=== PATIENT | female | born 1940 | race Caucasian/White ===

== ENCOUNTER 2024-05-05 10:26 | Outpatient (REF) | payer MEDICARE, MEDICAID, SELFPAY ==
[2024-05-05 14:44] LABS: Alanine Aminotransferase 12 U/L (0-31); Albumin Level 4.3 g/dL (3.5-5.0); Alkaline Phosphatase 73 U/L (39-117); Anion Gap 12 (12-20); Aspartate Amino Transferase 18 U/L (5-31); Bilirubin Direct 0.1 mg/dL (0.0-0.5); Bilirubin Total 0.4 mg/dL (0.0-1.0); Blood Urea Nitrogen 21 mg/dL (9-16); Calcium 9.4 mg/dL (8.4-10.2); Carbon Dioxide 27 mmol/L (22-29); Chloride 105 mmol/L (96-108); Cholesterol 211 mg/dL (<200); Estimated Glomerular Filt Rate > 60; Glucose Random 87 mg/dL (60-115); HDL Cholesterol 48 mg/dL (>40); LDL Cholesterol Calculated 136 mg/dL (<100); Potassium 4.7 mmol/L (3.3-5.1); Sodium 139 mmol/L (135-145); Total Protein 7.2 g/dL (6.5-8.0); Triglycerides 138 mg/dL (<150)
== END 2024-05-05 10:27 | disposition home or self-care (01) ==
LOC: HO.CHCLDS 10:26
PROVIDERS: Visit Provider Student in an Organized Health Care Education/Training Program
DX: I10 Essential (primary) hypertension (principal); E78.9 Disorder of lipoprotein metabolism, unspecified
CPT/HCPCS: 36415; 80048; 80061; 80076

== ENCOUNTER 2024-05-25 17:29 | Outpatient (REF) | payer MEDICARE, MEDICAID, SELFPAY ==
[2024-05-25 17:50] LABS: Appearance Urine Clear; Color Urine Yellow; Glucose Urine UA Negative (Negative); Leukocyte Esterase Urine Small (1+) (Negative); Nitrite Urine Negative (Negative); UMIC TRIGGER UACC YES; Urine Blood Small (1+) (Negative); Urine Ketones Negative (Negative); Urine Protein Negative (Neg-Trace)
[2024-05-25 17:52] LABS: Bacteria Urine 4+ (None Seen); Hyaline Casts Urine 0-2 /LPF (0-2); Squamous Epithelial Cell Urine 0-2 /HPF (0-2); UACC Culture Trigger YES
== END 2024-05-25 17:30 | disposition home or self-care (01) ==
LOC: HO.HHCLNP 17:29
PROVIDERS: Visit Provider Nurse Practitioner Primary Care
DX: R82.90 Unspecified abnormal findings in urine (principal); R82.79 Other abnormal findings on microbiological examination of urine
CPT/HCPCS: 81001; 87086; 87088; 87186

== ENCOUNTER 2024-08-02 18:23 | Outpatient (REF) | payer MEDICARE, MEDICAID, SELFPAY | END 2024-08-02 18:24 | disposition home or self-care (01) | LOC: HO.HHCLNP 18:23 | PROVIDERS: Visit Provider Internal Medicine | DX: H92.12 Otorrhea, left ear (principal) | CPT/HCPCS: 87070; 87077; 87205 ==

== ENCOUNTER 2024-10-19 09:40 | Outpatient (REF) | payer MEDICARE, MEDICAID, SELFPAY ==
--- OUTSIDE RECORDS SUMMARY | 2024-10-19 10:12 | XMS_ITS | Referral Summary ---
Author Organization [facility] Address [address] [place] [address] Care Team Providers Care Rehab Manager Name Role Phone Shawnee Haddad Primary Care Provider [phone] Allergies Active Allergy Reactions Criticality Noted Date Comments Aspirin Rash 03/29/2022 Brimonidine Other (see comments) 02/07/2021 Medications acetaminophen (TYLENOL) 325 mg tablet Take 650 mg by mouth every 6 hours as needed. 1 Active albuterol (PROAIR HFA,VENTOLIN HFA) 90 mcg inhaler Inhale 2 puffs by mouth 4 times a day as needed. 2 Active clotrimazole-b etamethasone (LOTRISONE) cream Apply topically to the affected area once a day. 1 Active docusate sodium (COLACE) 100 mg capsule Take 100 mg by mouth 2 times a day as needed. 1 Active estradioL (ESTRACE) 0.01 % (0.1 mg/gram) vaginal cream See Instructions, 1 gram Vaginally at bedtime 2 times per week, # 42 Gm, 4 Refills, Maintenance, 04/17/21 11:56:00 EDT, [facility], Patient sensitive to inactive ingredients of manufacturers drugs - compound makes a significant... 1 Active ibuprofen (MOTRIN) 600 mg tablet Take 600 mg by mouth every 6 hours as needed. 1 Active lisinopriL (PRINIVIL,ZEST RIL) 40 mg tablet TOME DEAN TABLETA TODOS LOS D 1 Active nitrofurantoin monohydrate/ma crocrystals (MACROBID) 100 mg capsule Take 100 mg by mouth every 12 hours. 2 Active oxyCODONE IR (ROXICODONE) 5 mg tablet Take 5 mg by mouth every 6 hours as needed. 1 Active pravastatin (PRAVACHOL) 40 mg tablet Take 40 mg by mouth once a day. 2 Active polyethylene glycol 3350 (MIRALAX) powder Take 17 g by mouth. 1 Active prednisoLONE acetate (PRED FORTE) 1% ophthalmic suspension 2 Active acetaZOLAMIDE (DIAMOX) 250 mg tablet Take 2 tablets (500 mg total) by mouth 2 times a day. 60 tablet 3 2 Active dorzolamide-ti moloL (COSOPT) 22.3-6.8 mg/mL ophthalmic solution Instill 1 drop into both eyes 2 times a day. 10 mL 5 2 Active Active Problems Problem Noted Date Diagnosed Date Lower urinary tract symptoms 03/29/2022 Primary open angle glaucoma of both eyes, severe stage 02/22/2021 Social History Tobacco Use Types Packs/Day Years Used Date Smoking Tobacco: Never Smokeless Tobacco: Never Tobacco Cessation:Counseling Given: Not Answered Comments Unknown Sex and Gender Information Value Date Recorded Sex Assigned at Not on file Legal Sex Female 1:12 PM EDT Gender Identity Not on file Sexual Orientation Not on file Plan of Treatment Not on file Insurance MEDICARE [facility] Care Teams Rehab Manager Relationship Specialty Start Date End Date Catie Shawnee [address] [place] [address] [place] [id number] PCP - General Family Medicine 04/19/22
--- OUTSIDE RECORDS SUMMARY | 2024-10-19 10:12 | XMS_ITS | Clinical Summary ---
Author Organization [facility] [employer] [facility] ity Address [address] [place] [address] Care Team Providers Care Community Reinvestment Act Officer Name Role Phone Unavailable Primary Care Provider Unavailabl e Social History Tobacco Use Types Packs/Day Years Used Date Smoking Tobacco: Never Assessed Sex and Gender Information Value Date Recorded Sex Assigned at Not on file Gender Identity Not on file Sexual Orientation Not on file Plan of Treatment Health Maintenance Due Date Last Done Comments DTaP,Tdap,and Td Vaccines (1 - Tdap) 1959 Zoster Vaccines (1 of 2) 1990 Pneumococcal Vaccine: 65+ Ye ars (1 of 1 - PCV) 2005 RSV Immunization Patients 60 + Years Old (1 - 1-dose 75+ series) 2015 COVID-19 Vaccine ( - 2023-2 5 season) 2024 Influenza Vaccine (#1) 2024 HIB Vaccines Aged Out No longer eligi ble based on patient's age to complete this topic HPV Vaccines Aged Out No longer eligi ble based on patient's age to complete this topic Hepatitis A Vaccines Aged Out No long er eligible based on patient's age to complete this topic Hepatitis B Vaccines Aged Out No long er eligible based on patient's age to complete this topic IPV Vaccines Aged Out No longer eligi ble based on patient's age to complete this topic MMR Vaccines Aged Out No longer eligi ble based on patient's age to complete this topic Meningococcal ACWY Vaccine Aged Out N o longer eligible based on patient's age to complete this topic RSV Immunization Patients Un prachi 20 months Aged Out No longer eligible b ased on patient's age to complete this topic Varicella Vaccines Aged Out No longer eligible based on patient's age to complete this topic
--- OUTSIDE RECORDS SUMMARY | 2024-10-19 10:12 | XMS_ITS | Encounter Summary ---
Author Organization [facility] Address [address] [facility] 7t [place] [address] Care Team Providers Care Cash Applications Clerk Name Role Phone Shawnee Haddad MD Primary Care Provider [phone] Reason for Referral * Consultation (Routine) - Authorized Specialty Diagnoses / Procedures Referred By Faustino gan Referred To Contact Audiology Diagnoses Bilateral hearing loss, unspecified hearing loss type Shawnee Haddad MD [address] [place] [address] Phone: tel: fax: [facility] Audiology [address] [place] [address] Phone: tel: fax: Referral ID Status Reason Start Date Expiration Date Visits Requested Visits Authorized [id number] Authorized Specialty Services Required 09/24/2024 09/24/2025 1 1 Reason for Visit * Reason Comments UTI Encounter Details Date Type Department Care Team ([facility] st Contact Info) Description 09/24/2024 4:00 PM EST Office Visit [facility] [address] [place] [address] Shawnee Haddad MD [address] [place], [place] [phone] Urinary tract infection without hematuria, site unspecified (Primary Dx); Bilateral hearing loss, unspecified hearing loss type Social History Tobacco Use Types Packs/Day Years Used Date Smoking Tobacco: Never Passive Smoke Exposure: Never Smokeless Tobacco: Never Housing Stability Answer Date Recorded What is your housing situation today? I have kyle marinelli 04/08/[address] you li ve. Do you have problems with any of the following? None of the above 04/08/2024 Food Insecurity Answer Date Recorded Within the past 12 months, y ou worried that your food would run out before you got money to buy more: Never True 04/08/2024 Within the past 12 months,th e food you bought just didn't last and you didn't have enough money to get more: Never True Transportation Answer Date Recorded In the past 12 months, has l ack of transportation kept you from medical appts, meetings, work or from getting things needed for daily living? No 04/08/2024 Utilities Answer Date Recorded In the past 12 months, has t he electric, gas, oil or water company threatened to shut off services in your home? No 04/08/2024 Internet Access Answer Date Recorded Internet Access Q1 Yes 05/17/2024 Internet Access Q2 Not on file 05/17/2024 Comments No Sex and Gender Information Value Date Recorded Sex Assigned at Female 07/15/2022 10:29 AM EDT Legal Sex Female 10:29 AM EDT Gender Identity Choose not to disclose 10:29 AM EDT Sexual Orientation Choose not to disclose 2021 10:29 AM EDT documented as of this encounter Last Filed Vital Signs Vital Sign Reading Time Taken Comments Blood Pressure 139/72 09/24/2024 3:51 PM EST Pulse 76 09/24/2024 3:51 PM EST Temperature 36.6 ??C (97.9 ??F) 09/24/2024 3:51 PM ES T Respiratory Rate 16 09/24/2024 3:51 PM EST Oxygen Saturation 95% 09/24/2024 3:51 PM EST Inhaled Oxygen Concentration - - Weight 56.2 kg (124 lb) 09/24/2024 3:51 PM EST Height - - Body Mass Index 25.04 09/20/2024 9:56 AM EST documented in this encounter Progress Notes * Shawnee Haddad MD - 09/24/2024 4:00 PM EST Subjective Patient ID: Heriberto Terrazas is a 84 y.o. adult who presents for UTI. UTI This is a new problem. The current episode started today. The problem is unchanged. Associated symptoms include pain. Review of Systems Constitutional: Negative. Respiratory: Negative. Cardiovascular: Negative. Gastrointestinal: Negative. Genitourinary: Positive for dysuria. Objective Physical Exam Constitutional: Appearance: Normal appearance. Cardiovascular: Rate and Rhythm: Normal rate and regular rhythm. Neurological: Mental Status: Heriberto is alert. Assessment/Plan Diagnoses and all orders for this visit: Urinary tract infection without hematuria, site unspecified Comments: Started On Bactrim DS for 7days Advised plenty of fluids Orders: - POCT urinalysis dipstick manually resulted Bilateral hearing loss, unspecified hearing loss type - Referral to Audiology; Future Other orders - sulfamethoxazole-trimethoprim (Bactrim DS) 800-160 MG tablet; Take 1 tablet by mouth 2 times daily for 7 days. documented in this encounter Plan of Treatment Scheduled Referrals Name Type Priority Associated Diagnoses Orde r Schedule Referral to Audiology Outpatient Referral Routine Bilateral hearing loss, unspecified hearing loss type Expected: 09/24/2024 (Approximate), Expires: 09/24/2025 documented as of this encounter Procedures Procedure Name Priority Date/Time Associated Diagnosis Comments POCT URINALYSIS DIPSTICK Routine 09/24/2024 3:59 PM EST Urinary tract infection without hematuria, site unspecified documented in this encounter Results * (ABNORMAL) POCT urinalysis dipstick manually resulted (09/24/2024 3:59 PM EST) Color, UA Yellow Clarity, UA Clear Glucose, UA Negative Bilirubin, UA Negative Ketones, UA Negative Spec Grav, UA 1.005 Blood, UA Positive(A) Negative, None Detected Comment:Large pH, UA 6.0 Protein, UA Negative Urobilinogen, UA 0.2 Leukocytes, UA Trace Negative, Rare, Trace Nitrite, UA Negative Negative, None Detected Appearance, UA ok Urine 09/24/2024 3:59 PM EST Shawnee Haddad MD POINT OF CARE TEST ENTER/EDIT OR DERABLES Final Result documented in this encounter Visit Diagnoses Diagnosis Urinary tract infection without hematuria, site unspecified- Primary Bilateral hearing loss, unspecified hearing loss type documented in this encounter Care Teams Cash Applications Clerk Relationship Specialty Start Date End Date Shawnee Haddad MD [address] [place] [phone] PCP - General Family Medicine 01/24/16 documented as of this encounter
--- OUTSIDE RECORDS SUMMARY | 2024-10-19 10:12 | XMS_ITS | Encounter Summary ---
Author Organization [employer] Address [address] [facility] 7t [place] [address] Care Team Providers Care Supervisor Sample Name Role Phone Shawnee Haddad MD Primary Care Provider [phone] Reason for Visit * Reason Onset Date Comments Appointment Request 02/17/2023 Encounter Details Date Type Department Care Team (Late st Contact Info) Description 02/17/2023 Telephone [facility] MEDICINE [address] [place] [address] Shawnee Haddad MD [address] [place] [address] Appointment Request Social History Tobacco Use Types Packs/Day Years Used Date Smoking Tobacco: Never Passive Smoke Exposure: Never Smokeless Tobacco: Never Comments Unknown Sex and Gender Information Value Date Recorded Sex Assigned at Female 07/15/2022 10:29 AM EDT Legal Sex Female 10:29 AM EDT Gender Identity Choose not to disclose 10:29 AM EDT Sexual Orientation Choose not to disclose 2021 10:29 AM EDT documented as of this encounter Miscellaneous Notes * Telephone Encounter - Rebecca Menon - 02/17/2023 9:09 AM EDT Tc from [place] with [facility] requesting a Pre-Op appointment. Location: [facility] Procedure: Glaucoma Laser for left eye Date of Procedure: March 24 Lab: no EKG: no documented in this encounter Plan of Treatment Not on file documented as of this encounter Visit Diagnoses Not on filedocumented in this encounter Care Teams Supervisor Sample Relationship Specialty Start Date End Date Shawnee Haddda MD [address] [place] [address] PCP - General Family Medicine 01/24/16 documented as of this encounter
--- OUTSIDE RECORDS SUMMARY | 2024-10-19 10:12 | XMS_ITS | Encounter Summary ---
Author Organization [employer] Address [address] [facility] 7[address] [place] [address] Care Team Providers Care Patient Portal Concierge Name Role Phone Shawnee Haddad MD Primary Care Provider [phone] Reason for Referral * Medications - Closed Specialty Diagnoses / Procedures Referred By Faustino gan Referred To Contact Diagnoses Mild persistent asthma without complication Shawnee Haddad MD [address] [place] [address] Phone: tel: fax: Referral ID Status Reason Start Date Expiration Date Visits Re quested Visits Authorized [id number] Closed 1 1 Reason for Visit * Reason Onset Date Comments New Med Request 09/20/2024 Encounter Details Date Type Department Care Team ([facility] Contact Info) Description 09/20/2024 Refill [facility] MED[facility] [address] [place] [address] Shawnee Haddad MD [address] [place], [place] [phone] Mild persistent asthma without complication (Primary Dx) Social History Tobacco Use Types Packs/Day Years [...] as of this encounter Miscellaneous Notes * Addendum Note - Melida Smith RN - 09/21/2024 3:38 PM ESTAddended by: MELIDA SMITH on: 09/21/2024 03:38 PM Modules accepted: Orders * Telephone Encounter - Jory Mathew RN - 09/20/2024 3:49 PM EST TC to [facility]-no record of albuterol solution prescription on file for this patient. TC to patient via #[email or web address] answer, voicemail unavailable * Telephone Encounter - Gunner Sanchez - 09/20/2024 2:52 PM EST Tc from pt requesting a new Rx for albuterol solution for her nebulizer as is not currently in her med list. documented in this encounter Plan of Treatment Not on file documented as of this encounter Visit Diagnoses Diagnosis Mild persistent asthma without complication- Primary documented in this encounter Care Teams Patient Portal Concierge Relationship Specialty Start Date End Date Shawnee Haddad MD [address] [place] [phone] PCP - General Family Medicine 01/24/16 documented as of this encounter
--- OUTSIDE RECORDS SUMMARY | 2024-10-19 10:12 | XMS_ITS | Encounter Summary ---
Author Organization [employer] Address [address] [facility] [address] [place] [address] Care Team Providers Care Information Security Systems Instructor Name Role Phone Shawnee Haddad MD Primary Care Provider [phone] Encounter Details Date Type Department Care Team (Latest Contact Info) Description 09/20/2024 Travel Social History Tobacco Use Types Packs/Day Years [...] AM EDT documented as of this encounter Plan of Treatment Not on file documented as of this encounter Visit Diagnoses Not on filedocumented in this encounter Care Teams Information Security Systems Instructor Relationship Specialty Start Date End Date Shawnee Haddad MD [address] [place] [address] PCP - General Family Medicine 01/24/16 documented as of this encounter
--- OUTSIDE RECORDS SUMMARY | 2024-10-19 10:12 | XMS_ITS | Encounter Summary ---
Author Organization [employer] Address [address] [facility] [address] [place] [address] Care Team Providers Care Lawn Mower Operator Name Role Phone Shawnee Haddad MD Primary Care Provider [phone] Reason for Visit * Reason Comments ear infection fu Encounter Details Date Type Department Care Team ([facility] Contact Info) Description 09/20/2024 10:00 AM EST Office Visit [facility] [address] [place] [address] Shawnee Haddad MD [address] [place] [address] Discharge of left ear present (Primary Dx); Primary hypertension; Mild persistent asthma with (acute) exacerbation Social History Tobacco Use Types Packs/Day Years Used Date Smoking Tobacco: Never Passive Smoke Exposure: Never Smokeless Tobacco: Never Tobacco Cessation:Counseling Given: Not Answered Housing Stability Answer Date Recorded What is [...] the past 12 months, has t he [employer], gas, oil or water company threatened to [...] Sign Reading Time Taken Comments Blood Pressure 134/84 09/20/2024 9:56 AM EST Pulse 84 09/20/2024 9:56 AM EST Temperature 36.6 ??C (97.9 ??F) 09/20/2024 9:56 AM ES T Respiratory Rate 20 09/20/2024 9:56 AM EST Oxygen Saturation - - Inhaled Oxygen Concentration - - Weight 56.2 kg (124 lb) 09/20/2024 9:56 AM EST Height 149.9 cm (4' 11 ) 09/20/2024 9:56 AM EST Body Mass Index 25.04 09/20/2024 9:56 AM EST documented in this encounter Progress Notes * Shawnee Haddad MD - 09/20/2024 10:00 AM EST Subjective Patient ID: Heriberto Terrazas is a 84 y.o. adult who presents for ear infection fu. Is here for follow up ear pain Symptoms resolved and she is feeling better Review of Systems Constitutional: Negative. Respiratory: Negative. Negative for shortness of breath. Cardiovascular: Negative for chest pain and palpitations. Gastrointestinal: Negative. Genitourinary: Negative. Musculoskeletal: Negative for neck pain. Neurological: Negative for headaches. Objective Physical Exam Constitutional: Appearance: Normal appearance. Cardiovascular: Rate and Rhythm: Normal rate and regular rhythm. Pulmonary: Effort: Pulmonary effort is normal. Breath sounds: Normal breath sounds. Neurological: General: No focal deficit present. Mental Status: Heriberto is alert. Psychiatric: Mood and Affect: Mood normal. Behavior: Behavior normal. Assessment/Plan Diagnoses and all orders for this visit: Discharge of left ear present Comments: resolved Advised to avoid water in the ears Primary hypertension Comments: Stable No changes in meds Maintain a low-sodium diet (less than 2 grams per day). Maintain a regular cardiovascular exercise program. Advised to maintain a low-fat, low-cholesterol diet. Counseled regarding importance of weight loss. Counseled re: potential co-morbidities including cardiovascular disease. Orders: - lisinopril 40 MG tablet; TAKE 1 TABLET BY MOUTH EVERY DAY Mild persistent asthma with (acute) exacerbation Comments: Stable Orders: - Flovent HFA 220 MCG/ACT inhaler; Inhale 2 puffs in the morning and at bedtime. Rinse mouth with water after use to reduce aftertaste and incidence of candidiasis. Do not swallow. - albuterol 108 (90 Base) MCG/ACT inhaler; Inhale 2 puffs Every 4-6 hours as needed for wheezing orshortness of breath. Other orders - pravastatin (Pravachol) 40 MG tablet; TAKE 1 TABLET BY MOUTH EVERY DAY documented in this encounter Plan of Treatment Not on file documented as of this encounter Visit Diagnoses Diagnosis Discharge of left ear present- Primary Primary hypertension Unspecified essential hypertension Mild persistent asthma with (acute) exacerbation documented in this encounter Care Teams Lawn Mower Operator Relationship Specialty Start Date End Date Shawnee Haddad MD [address] [place] [phone] PCP - General Family Medicine 01/24/16 documented as of this encounter
--- OUTSIDE RECORDS SUMMARY | 2024-10-19 10:12 | XMS_ITS | Encounter Summary ---
Author Organization [employer] Address [address] [facility] [place] [address] Care Team Providers Care Lay Brother Name Role Phone Shawnee Haddad MD Primary Care Provider [phone] Reason for Visit * Reason Comments Med Change Request Encounter Details Date Type Department Care Team ([facility] Contact Info) Description 09/23/2024 Refill [facility] [address] [place] [address] Shawnee Haddad MD [address] [place] [address] Mild persistent asthma with (acute) exacerbation Social [...] encounter Visit Diagnoses Diagnosis Mild persistent asthma with (acute) exacerbation documented in this encounter Care Teams Lay Brother Relationship Specialty Start Date End Date Shawnee Haddad MD [address] [place] [address] PCP - General Family Medicine 01/24/16 documented as of this encounter
--- OUTSIDE RECORDS SUMMARY | 2024-10-19 10:12 | XMS_ITS | Clinical Summary ---
Author Organization [employer] Address [address] [place] [address] 7[address] [place] [address] Care Team Providers Care Leather Lacer Name Role Phone Shawnee Haddad MD Primary Care Provider [phone] Allergies Active Allergy Reactions Criticality Noted Date Comments Aspirin Hives,Rash High 01/24/2016 Brimonidine Rash Low 02/07/2021 Medications timolol (Timoptic) 0.5 % ophthalmic solution DROPS PONGA DEAN GOTA EN LOS DOS OJOS DOS VECES [place] ROCK 022 Active prednisoLONE acetate (Pred-Forte) 1 % ophthalmic suspension PLACE 1 DROP INTO SURGICAL EYE(S) FOUR TIMES DAILY STARTING ON THE DAY OF SURGERY 023 Active methazolAMIDE (Neptazane) 50 MG tablet TOME DEAN TABLETA DOS VECES AL D A 022 Active ketorolac (Acular) 0.5 % ophthalmic solution PLACE 1 DROP INTO SURGICAL EYE(S) FOUR TIMES DAILY DIRECTED 023 Active dorzolamide-ping olol (Cosopt) 22.3-6.8 MG/ML ophthalmic solution PONGA DEAN GOTA EN LOS DOS OJOS DOS VECES AL D A 023 Active docusate sodium (Colace) 100 MG capsule TOME 1 CAPSULA POR VIA ORAL DOS VECES [place] ROCK NEEDED FOR CONSTIPATION NOT COVERED 022 Active naproxen (Naprosyn) 500 MG tablet TOME DEAN TABLETA TODOS LOS D 023 Active Spacer/Aero-Hol ding Chambers deviceIndicatio ns:Mild persistent asthma with (acute) exacerbation 1 each Every 4-6 hours as needed (SOB, wheezing). 1 each 1 023 Active Blood Pressure Monitor kitIndications: Primary hypertension 1 each 2 times daily. 1 kit 023 Active fluticasone (Flonase Allergy Relief) 50 MCG/ACT nasal spray Administer 1 spray into each nostril 2 times daily. Shake gently. Before first use, prime pump. After use, clean tip and replace cap. 16 g 12 024 2024 Active NIFEdipine XL (Procardia XL) 60 MG 24 hr tabletIndicatio ns:Primary hypertension TAKE 1 TABLET BY MOUTH EVERY DAY 90 tablet 3 024 Active clotrimazole (Lotrimin) 1 % external solutionIndicat ions:Otomycosis Apply topically 2 times a day x 10 days. 10 mL 024 Active pravastatin (Pravachol) 40 MG tablet TAKE 1 TABLET BY MOUTH EVERY DAY 90 tablet 3 025 Active lisinopril 40 MG tabletIndicatio ns:Primary hypertension TAKE 1 TABLET BY MOUTH EVERY DAY 90 tablet 3 025 Active albuterol 108 (90 Base) MCG/ACT inhalerIndicati ons:Mild persistent asthma with (acute) exacerbation Inhale 2 puffs Every 4-6 hours as needed for wheezing or shortness of breath. 18 g 1 025 Active albuterol (2.5 MG/3ML) 0.083% nebulizer solutionIndicat ions:Mild persistent asthma without complication Take 3 mL (2.5 mg) by nebulization every 4 (four) hours if needed for wheezing or shortness of breath. 75 mL 3 025 Active fluticasone (Flovent) 220 MCG/ACT inhalerIndicati ons:Mild persistent asthma with (acute) exacerbation INHALE 2 PUFFS IN THE MORNING AND AT BEDTIME. RINSE MOUTH WITH WATER AFTER USE TO REDUCE AFTERTASTE AND INCIDENCE OF CANDIDIASIS. DO NOT SWALLOW. 18 g 3 025 Active Flovent HFA 220 MCG/ACT inhalerIndicati ons:Mild persistent asthma with (acute) exacerbation Inhale 2 puffs in the morning and at bedtime. Rinse mouth with water after use to reduce aftertaste and incidence of candidiasis. Do not swallow. 12 g 3 023 2024 Discontinued(R eorder (will not trigger notification to Pharmacy)) albuterol 108 (90 Base) MCG/ACT inhalerIndicati ons:Mild persistent asthma with (acute) exacerbation Inhale 2 puffs Every 4-6 hours as needed for wheezing or shortness of breath. 18 g 1 023 2024 Discontinued(R eorder (will not trigger notification to Pharmacy)) pravastatin (Pravachol) 40 MG tablet TAKE 1 TABLET BY MOUTH EVERY DAY 90 tablet 3 024 2024 Discontinued(R eorder (will not trigger notification to Pharmacy)) lisinopril 40 MG tabletIndicatio ns:Primary hypertension TAKE 1 TABLET BY MOUTH EVERY DAY 90 tablet 3 024 2024 Discontinued(R eorder (will not trigger notification to Pharmacy)) Flovent HFA 220 MCG/ACT inhalerIndicati ons:Mild persistent asthma with (acute) exacerbation Inhale 2 puffs in the morning and at bedtime. Rinse mouth with water after use to reduce aftertaste and incidence of candidiasis. Do not swallow. 12 g 3 025 2024 Discontinued albuterol (2.5 MG/3ML) 0.083% nebulizer solution Take 2.5 mg by nebulization every 4 (four) hours if needed for wheezing or shortness of breath. 2024 Discontinued(R eorder (will not trigger notification to Pharmacy)) sulfamethoxazol e-trimethoprim (Bactrim DS) 800-160 MG tablet Take 1 tablet by mouth 2 times daily for 7 days. 14 tablet 025 2024 Active Problems Problem Noted Date Diagnosed Date Discharge of left ear present 08/02/2024 Mild persistent asthma without complication 10/16 Lipid disorder 10/30/2022 Primary open angle glaucoma of both eyes, severe stage 02/22/2021 Encounters Date Type Department Care Team Description 09/24/2024 4:00 PM EST Office Visit [facility] [address] [phone] Shawnee Haddad MD Urinary tract infection without hematuria, site unspecified (Primary Dx); Bilateral hearing loss, unspecified hearing loss type 09/23/2024 Refill [facility] [address] [place] [address] Shawnee Haddad MD Mild persistent asthma with (acute) exacerbation 09/20/2024 10:00 AM EST Office Visit [facility] [address] [place] [address] Shawnee Haddad MD Discharge of left ear present (Primary Dx); Primary hypertension; Mild persistent asthma with (acute) exacerbation 09/20/2024 Refill [facility] [address] [place] [phone] Shawnee Haddad MD Mild persistent asthma without complication (Primary Dx) 09/20/2024 Travel 08/19/2024 11:30 AM EST Office Visit [facility] [address] [place] [address] Shawnee Haddad MD Fluid level behind tympanic membrane of both ears (Primary Dx) 08/19/2024 Travel 08/04/2024 Telephone [facility] [address] [place] [address] Gurdeep Bennett MD 08/04/2024 Orders Only [facility] [address] [place] [address] Gurdeep Bennett MD Otomycosis (Primary Dx) 08/02/2024 1:40 PM EST Office Visit [facility] [address] [place] [phone] Gurdeep Bennett MD Primary hypertension (Primary Dx); Discharge of left ear present; Other hearing loss of left ear with unrestricted hearing of right ear 07/29/2024 Telephone [facility] [address] [place] [phone] Shawnee Haddad MD Med Refill from Last 3 Months Immunizations Name Administration Dates Next Due Influenza High-dose Quadriva lent Preservative Free 08/21/2023,07/02/2022,07/16/2021,06/07 Influenza injectable quadriv alent IIV4 with preservative 07/26/2019,06/25/2018,06/10/2017,06/27 Influenza, High Dose Seasona l, Preservative Free 07/01/2024 Pneumococcal Conjugate PCV 13 07/30/2016 Pneumococcal Polysaccharide PPSV23 06/25/2018 TD (adult), 2 Lf tetanus tox oid, preservative free, adsorbed 05/12/2017 Tdap 06/25/2018 Zoster, Recombinant 01/30/2021,11/17/2019 Social History Tobacco Use Types Packs/Day Years [...] not to disclose 2021 10:29 AM EDT Last Filed Vital Signs Vital Sign Reading Time Taken Comments Blood Pressure 139/72 09/24/2024 3:51 PM EST Pulse 76 09/24/2024 3:51 PM EST Temperature 36.6 ??C (97.9 ??F) 09/24/2024 3:51 PM ES T Respiratory Rate 16 09/24/2024 3:51 PM EST Oxygen Saturation 95% 09/24/2024 3:51 PM EST Inhaled Oxygen Concentration - - Weight 56.2 kg (124 lb) 09/24/2024 3:51 PM EST Height 149.9 cm (4' 11 ) 09/20/2024 9:56 AM EST Body Mass Index 25.04 09/20/2024 9:56 AM EST Plan of Treatment Health Maintenance Due Date Last Done Comments Depression Screening 1940 Alcohol/Substance Use Screening 1952 RSV Patients and Patients Aged 60 years or older (1 - 1-dose 75+ series) 2015 COVID-19 Vaccine ( season) 2024 11/07/2021, 12/20/2020, 11/22/2020 SDOH Screening 04/08/2025 04/08/2024 Tobacco Screening 09/20/2025 09/20/2024 DTaP/Tdap/Td Vaccines (2 - Td or Tdap) 06/25/2028 06/25/2018, 05/12/2017 Lipid Panel 05/05/2029 05/05/2024, 12/0 09/2021, 07/25/2022, Additional history exists Pneumococcal Vaccine: 50+ Years Completed 06/25/2018, 07/30/2016 Zoster Vaccines Completed 01/30/2021, 11/17/2019 Influenza Vaccine Completed 07/01/2024, , 07/02/2022, Additional history exists HIB Vaccines Aged Out No longer eligi [...] patient's age to complete this topic Meningococcal Vaccine Aged Out No elaine meron eligible based on patient's age to complete this topic RSV under 20 months Aged Out No longe r eligible based on patient's age to complete this topic Rotavirus Vaccines Aged Out No longer eligible based on patient's age to complete this topic Procedures Procedure Name Priority Date/Time Associated Diagnosis Comments POCT URINALYSIS DIPSTICK Routine 09/24/2024 3:59 PM EST Urinary tract infection without hematuria, site unspecified GRAM STAIN Routine 08/02/2024 12:00 AM EST LIPID PANEL, STANDARD Routine 05/05/2024 10:32 AM EDT Lipid disorder Primary hypertension from Last 3 Months or Most Recently Relevant to Health Maintenance Results * (ABNORMAL) POCT urinalysis dipstick manually [...] CARE TEST ENTER/EDIT OR DERABLES Final Result * Gram stain (08/02/2024 12:00 AM EST) 08/02/2024 08/02/2024 Comment:Ear Left Narrative [facility] - 08/06/2024 10:45 AM EST DISCHARGE OF LEFT EAR PRESENT Gram stain results: No polys 1+ epithelial cells 4+ yeast DISCHARGE OF LEFT EAR PRESENT Elizabeth parapsilosis Quant Org ID [id number] Specimen Source: Ear Left us Gurdeep Bennett MD LAB MICROBIOLOGY - GENERAL ORDERABLES Final Result [facility] [address] [place] [phone] * (ABNORMAL) Lipid Panel, Standard (05/05/2024 10:32 AM EDT) Triglycerides 138 <150 mg/dL [facility] Comment:Desirable Triglyceri de: less than 150 mg/dLBorderline High Triglyceride 150-199 mg/dLHigh Triglyceride: 200-499 mg/dLVery High Triglyceride: greater than or equal to 5OO mg/dL Cholesterol 211(H) <200 mg/dL [facility] Comment:Desirable Cholestero l: less than 200 mg/dLBorderline High Cholesterol: 200-239 mg/dLHigh Cholesterol: greater than 239 mg/dL LDL Cholesterol Calculated 136(H) <100 mg/dL [facility] Comment:Desirable LDL: less than 100 mg/dLNear Optimal/Above Optimal LDL: 110- 129 mg/dLBorderline High LDL: 130-159 mg/dLHigh LDL: 160-189 mg/dLVery High LDL: greater than or equal to 190 mg/dL HDL Cholesterol 48 >40 mg/dL [facility] Comment:Desirable HDL: great er than 40 mg/dL Note: This HDL assay may give artificially low results in patients with liver disease. Blood Venous blood specimen / Unknown 05/05/2024 10:32 AM EDT 05/05/2024 2:09 PM EDT us Shawnee Haddad MD LAB BLOOD ORDERABLES Final Resul t [facility] [address] [place] [phone] from Last 3 Months or Most Recently Relevant to Health Maintenance Insurance MEDICARE [facility] STANDARD Care Teams Leather Lacer Relationship Specialty Start Date End Date Shawnee Haddad MD [address] [place] [phone] PCP - General Family Medicine 01/24/16
--- OUTSIDE RECORDS SUMMARY | 2024-10-19 10:13 | XMS_ITS | Clinical Summary ---
Author Organization [facility] Address [address] [place] [address] Care Team Providers Care Hazard Mitigation Officer Name Role Phone Shawnee Haddad Primary Care Provider [phone] Allergies Active Allergy Reactions Criticality Noted Date [...] Refills, Maintenance, 04/17/21 11:56:00 EDT, [facility], Patient sensitive to inactive ingredients of manufacturers [...] glaucoma of both eyes, severe stage 02/22/2021 Family History Medical History Relation Name Comments Glaucoma Sister Relation Name Status Comments Sister Social History Tobacco Use Types Packs/Day Years Used Date Smoking Tobacco: Never Smokeless Tobacco: Never Tobacco Cessation:Counseling Given: Not Answered Comments Unknown Sex and Gender Information Value Date Recorded Sex Assigned at Not on file Legal Sex Female 1:12 PM EDT Gender Identity Not on file Sexual Orientation Not on file Plan of Treatment Health Maintenance Due Date Last Done Comments Osteoporosis Screening 1990 RSV Vaccine (60+ years old and patients) (1 - 1-dose 75+ series) 2015 COVID-19 Vaccine ( season) 2024 11/07/2021, 12/20/2020, 11/22/2020 Influenza Vaccine (#1) 2024 2, 07/16/2021, 06/07/2020, Additional history exists Alcohol/Substance Use Screening 09/15/2024 Depression Screening and Follow-Up 09/15/2024 Health Care Proxy Review 09/15/2024 Social Drivers of Health Annual Screening 09/15/2024 DTaP,Tdap,and Td Vaccines (2 - Td or Tdap) 06/25/2028 06/25/2018, 05/12/2017 Pneumococcal Vaccine: 65+ Years Completed 06/25/2018, 07/30/2016, 03/19/2015 Zoster Vaccines Completed 01/30/2021, 11/17/2019 Hepatitis B Vaccines Aged Out No long er eligible based on patient's age to complete this topic Insurance MEDICARE [facility] Care Teams Hazard Mitigation Officer Relationship Specialty Start Date End Date Shawnee Haddad [address] [place] [phone] PCP - General Family Medicine 04/19/22
--- OUTSIDE RECORDS SUMMARY | 2024-10-19 10:13 | XMS_ITS | Encounter Summary ---
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
--- NOTE | 2024-10-19 12:27 | MHC.AU.HA1 ---
Hearing Aid Evaluation Date of Visit: 10/19/24 Phone Technician Used: Declined by Patient, daughter interpreted Historical Information: Description of Hearing: Moderate to moderately severe sensorineural hearing loss, bilateral. Current personal amplification information, if applicable: None. Summary: Amplification recommended to facilitate improved communication. Recommended RITE with custom mold. Heriberto selected rechargeable. Impressions taken without incidence Au. Hearing Aid Prescription: Based on the individual?s shared listening needs, communication environments, dexterity, desire for connectivity, and personal preferences, the following prescription for amplification has been made: Right ear: Make, Model, Color: Oticon Intent 2 R silver Battery Size: Rechargeable Music Historian/Slim Tube: 2/ 85 Type of Earmold/Dome/CShell/SlimTip: acrylic micromold half skeleton Left ear: Make, Model, Color: Oticon Intent 2 R silver Battery Size: Rechargeable Music Historian/Slim Tube: 2/85 Type of Earmold/Dome/CShell/SlimTip: acrylic micromold half skeleton Plan of Care: Patient wishes to purchase hearing aids as prescribed Action Taken/Action Needed: Earmold Impressions Taken Medical Clearance to be requested from PCP/ENT Hearing Instrument Fitting to be scheduled when materials arrive Primary Diagnosis: H90.3 Bilateral Sensorineural Hearing Loss Signature: Provider: Phillip Ybarra, [facility]
== END 2024-10-19 09:41 | disposition home or self-care (01) ==
LOC: HO.SH 09:40
PROVIDERS: Visit Provider Student in an Organized Health Care Education/Training Program
DX: Z01.118 Encounter for examination of ears and hearing with other abnormal findings (principal); Z46.1 Encounter for fitting and adjustment of hearing aid; H90.3 Sensorineural hearing loss, bilateral
CPT/HCPCS: 92557; 92567; 92591; V5275

== ENCOUNTER 2024-12-07 11:02 | Outpatient (REF) | payer MEDICARE, MEDICAID, SELFPAY | END 2024-12-07 11:03 | disposition home or self-care (01) | LOC: HO.LNP 11:02 | PROVIDERS: Visit Provider Emergency Medicine | DX: R39.9 Unspecified symptoms and signs involving the genitourinary system (principal) | CPT/HCPCS: 87086; 87088; 87186 ==

== ENCOUNTER 2024-12-13 14:53 | Outpatient (REF) | payer MEDICARE, MEDICAID, SELFPAY ==
--- NOTE | 2024-12-13 16:11 | MHC.AU.HA2 ---
Hearing Instrument Fitting- Adult- Binaural Date of Visit: 12/13/24 Gut Cleaner Used: Daughter. Hearing Instruments Dispensed: Right Ear: Make, Model, Color, Serial Number: Oticon Intent 2 R silver [id number] Banquet Supervisor Repair Warranty: 12/02/2027 Banquet Supervisor Loss and Damage Warranty: 12/02/2027 [facility] Service Plan: 12/13/25 Battery Size: Rechargeable Financial Administrative Assistant/Slim Tube: 2/ 85 Earmold/Dome/CShell/SlimTip: acrylic micromold half skeleton [id number] Type of Wax Guard: Oticon Prowax Left Ear: Make, Model, Color, Serial Number: Oticon Intent 2 R silver [id number] Banquet Supervisor Repair Warranty: 12/02/2027 Banquet Supervisor Loss and Damage Warranty: 12/02/2027 [facility] Service Plan: 12/13/25 Battery Size: Rechargeable Financial Administrative Assistant/Slim Tube: 285 Earmold/Dome/CShell/SlimTip: acrylic micromold half skeleton [id number] [facility] 02/14/2025 Type of Wax Guard: Oticon Prowax Summary of Fitting: Fit with and oriented to binaural Oticon Intent 2 R HAs with custom molds. Verified to L adult 5 targets. Set to adaptation 1 with gradual increase. Counseled on adjustment to amplification. Reviewed maintenance, precautions, charging. Practiced insertion and removal. Daughter will be managing maintenance and hearing aid use due to Heriberto's increasingly low vision. VC disabled. Not paired with a phone. Recommendations: Recommendations: Hearing instrument care and maintenance were discussed and practiced. A hearing instrument follow-up was scheduled. Diagnosis Code(s): Primary Diagnosis: H90.3 Bilateral Sensorineural Hearing Loss Signature: Provider: Phillip Ybarra, CCC-A
--- OUTSIDE RECORDS SUMMARY | 2024-12-13 16:52 | XMS_ITS | Clinical Summary ---
Author Organization [employer] Address [address] [place] [address] 7t [place] [address] Care Team Providers Care Shoes Salesperson Name Role Phone Shawnee Haddad MD Primary Care Provider [phone] Allergies Active Allergy Reactions Criticality Noted Date Comments Aspirin Hives,Rash High 01/24/2016 Brimonidine Rash Low 02/07/2021 Medications timolol (Timoptic) 0.5 % ophthalmic solution DROPS PONGA DEAN GOTA EN LOS DOS OJOS DOS VECES [place] 02/29/20 22 Active prednisoLONE acetate (Pred-Forte) 1 % ophthalmic suspension PLACE 1 DROP INTO SURGICAL EYE(S) FOUR TIMES DAILY STARTING ON THE DAY OF SURGERY 10/15/19 23 Active methazolAMIDE (Neptazane) 50 MG tablet TOME DEAN TABLETA DOS VECES AL D A 07/12/20 22 Active ketorolac (Acular) 0.5 % ophthalmic solution PLACE 1 DROP INTO SURGICAL EYE(S) FOUR TIMES DAILY DIRECTED 10/17/19 23 Active dorzolamide-harrison lol (Cosopt) 22.3-6.8 MG/ML ophthalmic solution PONGA DEAN GOTA EN LOS DOS OJOS DOS VECES AL D A 09/24/19 23 Active docusate sodium (Colace) 100 MG capsule TOME 1 CAPSULA POR VIA ORAL DOS VECES [place] NEEDED FOR CONSTIPATION NOT COVERED 06/14/20 22 Active naproxen (Naprosyn) 500 MG tablet TOME DEAN TABLETA TODOS LOS D 02/24/20 23 Active Spacer/Aero-Hold ing Chambers deviceIndication s:Mild persistent asthma with (acute) exacerbation 1 each Every 4-6 hours as needed (SOB, wheezing). 1 each 1 05/07/20 23 Active Blood Pressure Monitor kitIndications:P rimary hypertension 1 each 2 times daily. 1 kit 05/07/20 23 Active fluticasone (Flonase Allergy Relief) 50 MCG/ACT nasal spray Administer 1 spray into each nostril 2 times daily. Shake gently. Before first use, prime pump. After use, clean tip and replace cap. 16 g 12 01/09/20 24 025 Active NIFEdipine XL (Procardia XL) 60 MG 24 hr tabletIndication s:Primary hypertension TAKE 1 TABLET BY MOUTH EVERY DAY 90 tablet 3 08/02/20 24 Active clotrimazole (Lotrimin) 1 % external solutionIndicati ons:Otomycosis Apply topically 2 times a day x 10 days. 10 mL 08/04/20 24 Active pravastatin (Pravachol) 40 MG tablet TAKE 1 TABLET BY MOUTH EVERY DAY 90 tablet 3 09/20/19 25 Active lisinopril 40 MG tabletIndication s:Primary hypertension TAKE 1 TABLET BY MOUTH EVERY DAY 90 tablet 3 09/20/19 25 Active albuterol 108 (90 Base) MCG/ACT inhalerIndicatio ns:Mild persistent asthma with (acute) exacerbation Inhale 2 puffs Every 4-6 hours as needed for wheezing or shortness of breath. 18 g 1 09/20/19 25 Active albuterol (2.5 MG/3ML) 0.083% nebulizer solutionIndicati ons:Mild persistent asthma without complication Take 3 mL (2.5 mg) by nebulization every 4 (four) hours if needed for wheezing or shortness of breath. 75 mL 3 09/22/19 25 Active fluticasone (Flovent) 220 MCG/ACT inhalerIndicatio ns:Mild persistent asthma with (acute) exacerbation INHALE 2 PUFFS IN THE MORNING AND AT BEDTIME. RINSE MOUTH WITH WATER AFTER USE TO REDUCE AFTERTASTE AND INCIDENCE OF CANDIDIASIS. DO NOT SWALLOW. 18 g 3 10/05/19 25 Active nitrofurantoin, macrocrystal-mon ohydrate, (Macrobid) 100 MG capsule Take 1 capsule (100 mg) by mouth 2 times daily for 5 days. 10 capsule 12/08/19 25 025 Active Problems Problem Noted Date Diagnosed Date Discharge of left ear present 08/02/2024 Mild persistent asthma without complication 10/16 Lipid disorder 10/30/2022 Primary open angle glaucoma of both eyes, severe stage 02/22/2021 Encounters Date Type Department Care Team Description 12/07/2024 10:00 AM EDT Office Visit [facility] [address] [place] [address] Jonny Trammell MD UTI symptoms 11/30/2024 Telephone [facility] [address] [place] [address] Shawnee Haddad MD Pre-op Exam 09/24/2024 4:00 PM EST Office Visit [facility] [address] [address] Shawnee Haddad MD Urinary tract infection without hematuria, site unspecified (Primary Dx); Bilateral hearing loss, unspecified hearing loss type 09/23/2024 Refill [facility] [address] [place] [address] Shawnee Haddad MD Mild persistent asthma with (acute) exacerbation 09/20/2024 10:00 AM EST Office Visit [facility] [address] [place] [address] Shawnee Haddad MD Discharge of left ear present (Primary Dx); Primary hypertension; Mild persistent asthma with (acute) exacerbation 09/20/2024 Refill [facility] [address] [place] [address] Shawnee Haddad MD Mild persistent asthma without complication (Primary Dx) 09/20/2024 Travel from Last 3 Months Immunizations Name Administration [...] is your housing situation today? I have klye marinelli 04/08/[address] you [...] Sign Reading Time Taken Comments Blood Pressure 157/83 12/07/2024 9:59 AM EDT Pulse 80 12/07/2024 9:59 AM EDT Temperature 36.6 ??C (97.8 ??F) 12/07/2024 9:59 AM ED T Respiratory Rate 18 12/07/2024 9:59 AM EDT Oxygen Saturation 97% 12/07/2024 9:59 AM EDT Inhaled Oxygen Concentration - - Weight 56.2 kg (124 lb) 09/24/2024 3:51 PM EST Height 149.9 cm (4' 11 ) 09/20/2024 9:56 AM EST Body Mass Index 25.04 09/20/2024 9:56 AM EST Plan of Treatment Upcoming Encounters Date Type Department Care Team ([facility] st Contact Info) Description 01/24/2025 10:15 AM EDT Office Visit [facility] [address] [place] [address] Shawnee Haddad MD [address] [place] [address] Health Maintenance Due Date Last Done Comments Depression Screening 1940 Alcohol/Substance Use Screening 1952 RSV Patients and Patients Aged 60 years or older (1 - 1-dose 75+ series) 2015 COVID-19 Vaccine ( season) 2024 11/07/2021, 12/20/2020, 11/22/2020 SDOH Screening 04/08/2025 04/08/2024 Tobacco Screening 12/07/2025 12/07/2024 DTaP/Tdap/Td Vaccines (2 - Td or Tdap) [...] Procedure Name Priority Date/Time Associated Diagnosis Comments CULTURE, URINE, ROUTINE Routine 12/07/2024 11:02 AM EDT UTI symptoms POCT URINALYSIS DIPSTICK Routine 12/07/2024 10:08 AM EDT UTI symptoms POCT URINALYSIS DIPSTICK Routine 09/24/2024 3:59 PM EST Urinary tract infection without hematuria, site unspecified LIPID PANEL, STANDARD Routine 05/05/2024 10:32 AM EDT Lipid disorder Primary hypertension from Last 3 Months or Most Recently Relevant to Health Maintenance Results * Culture, Urine, Routine (12/07/2024 11:02 AM EDT) Urine Urine specimen obtained by clean catch procedure / Unknown 12/07/2024 11:02 AM EDT 12/07/2024 5:21 PM EDT Comment:[facility] Narrative [facility] - 12/09/2024 8:13 AM EDT Escherichia coli Quant > 100,000 cfu/mL Escherichia coli: Ampicillin >=32(R) Escherichia coli: Cefazolin (Urine) 2(S) Escherichia coli: Cefepime <=0.12(S) Escherichia coli: Ceftriaxone <=0.25(S) Escherichia coli: Ciprofloxacin <=0.06(S) Escherichia coli: Gentamicin <=1(S) Escherichia coli: Nitrofurantoin <=16(S) Escherichia coli: Trimethoprim/Sulfamethoxazole <=20(S) Specimen Source: Urine clean catch us Jonny Trammell MD LAB MICROBIOLOGY - GENERAL ORDER SREEKANTH Final Result [facility] [address] [place] [phone] * (ABNORMAL) POCT urinalysis dipstick manually resulted (12/07/2024 10:08 AM EDT) Only the most recent of2 resultswithin the time period is included. Color, UA Yellow Clarity, UA Clear Glucose, UA Negative Bilirubin, UA Negative Ketones, UA Negative Spec Grav, UA 1.025 Blood, UA Positive(A) Negative, None Detected Comment:Large pH, UA 5.5 Protein, UA Few 15 Comment:>=300 mg/dL Urobilinogen, UA 0.2 Leukocytes, UA Many(A) Negative, Rare, Trace Comment:Large Nitrite, UA Positive(A) Negative, None Detected Urine 12/07/2024 10:0 8 AM EDT Jonny Trammell MD POINT OF CARE TEST ENTER/EDIT OR DERABLES Final Result * (ABNORMAL) Lipid Panel, Standard (05/05/2024 10:32 AM EDT) Pathologist [facility] Triglycerides 138 <150 mg/dL [facility] Comment:Desirable Triglyceri de: less than 150 mg/dLBorderline High Triglyceride 150-199 mg/dLHigh Triglyceride: 200-499 mg/dLVery High Triglyceride: greater than or equal to 5OO mg/dL Cholesterol 211(H) <200 mg/dL [facility] Comment:Desirable Cholestero l: less than 200 mg/dLBorderline High Cholesterol: 200-239 mg/dLHigh Cholesterol: greater than 239 mg/dL LDL Cholesterol Calculated 136(H) <100 mg/dL [facility] Comment:Desirable LDL: less than 100 mg/dLNear Optimal/Above Optimal LDL: 110- 129 mg/dLBorderline High LDL: 130-159 mg/dLHigh LDL: 160-189 mg/dLVery High LDL: greater than or equal to 190 mg/dL HDL Cholesterol 48 >40 mg/dL [facility] Comment:Desirable HDL: great er than 40 mg/dL Note: This HDL assay may give artificially low results in patients with liver disease. Blood Venous blood specimen / Unknown 05/05/2024 10:32 AM EDT 05/05/2024 2:09 PM EDT Shawnee Haddad MD LAB BLOOD ORDERABLES Final Resul t [facility] [address] [place] [address] [phone] from Last 3 Months or Most Recently Relevant to Health Maintenance Insurance MEDICARE [facility] STANDARD Care Teams Shoes Salesperson Relationship Specialty Start Date End Date Shawnee Haddad MD [address] [place] [address] PCP - General Family Medicine 01/24/16
--- OUTSIDE RECORDS SUMMARY | 2024-12-13 16:52 | XMS_ITS | Encounter Summary ---
Author Organization [employer] Address [address] 7[address] [place] [address] Care Team Providers Care Inspector Barrel Name Role Phone Shawnee Haddad MD Primary Care Provider [phone] Reason for Visit * Reason Onset Date Comments Pre-op Exam 11/30/2024 Encounter Details Date Type Department Care Team ([facility] st Contact Info) Description 11/30/2024 Telephone [facility] [address] [place] [address] Shawnee Haddad MD [address] [place] [address] Pre-op Exam Social History Tobacco Use Types Packs/Day Years [...] encounter Miscellaneous Notes * Telephone Encounter - Ly Alcala - 12/01/2024 10:36 AM EDT Pt agreed to pre op appointment on 01/24/25 at 10:15 with PCP . Appointment reminder letter mailed. * Telephone Encounter - Mera Pablo - 11/30/2024 10:52 AM EDT Date of Surgery: 02/10 Surgical procedure being done: Blurred vision Type of anesthesia: MAC Lab needed: No EKG: Yes Surgeon's name: Bhavna Aleman Facility name: [facility] Surgeon's office number: [phone] Ext [phone] Surgeon's office fax number: [phone] Contact name (person you spoke with): Lois Last office note from surgeon requested: Yes Send Message to Ly Alcala and Jama Rush documented in this encounter Plan of Treatment Upcoming Encounters Date Type Department Care Team ([facility] Contact Info) Description 01/24/2025 10:15 AM EDT Office Visit [facility] [address] [facility] [place] [address] Shawnee Haddad MD [address] [place] [address] documented as of this encounter Visit Diagnoses Not on filedocumented in this encounter Care Teams Inspector Barrel Relationship Specialty Start Date End Date Shawnee Haddad MD [address] [place] [address], [place] [address] PCP - General Family Medicine 01/24/16 documented as of this encounter
--- OUTSIDE RECORDS SUMMARY | 2024-12-13 16:52 | XMS_ITS | Clinical Summary ---
Author Organization [facility] ity Address [address] [place] [address] Care Team Providers Care Lot Worker Name Role Phone Unavailable Primary Care Provider Unavailabl e Social History Tobacco Use Types Packs/Day Years Used Date Smoking Tobacco: Never Assessed Comments Unknown Sex and Gender Information Value Date Recorded Sex Assigned at Not on file Legal Sex Female 4:51 AM EST Gender Identity Not on file Sexual Orientation Not on file Plan of Treatment Health Maintenance Due Date Last Done Comments DTaP,Tdap,and Td Vaccines (1 - Tdap) 1959 Pneumococcal Vaccine: 50+ Ye ars (1 of 1 - PCV) 1990 Zoster Vaccines (1 of 2) 1990 RSV Immunization Patients 60 + Years Old [...] patient's age to complete this topic Meningococcal B Vacine Aged Out No lo nger eligible based on patient's age to complete this topic RSV Immunization Patients Un prachi 20 months Aged Out No longer eligible b ased on patient's age to complete this topic Varicella Vaccines Aged Out No longer eligible based on patient's age to complete this topic
--- OUTSIDE RECORDS SUMMARY | 2024-12-13 16:52 | XMS_ITS | Referral Summary ---
Author Organization [facility] Address [address] [place] [address] Care Team Providers Care Manager Trade Name Role Phone Shawnee Haddad Primary Care Provider [phone] Allergies Active Allergy Reactions Criticality Noted Date [...] Refills, Maintenance, 04/17/21 11:56:00 EDT, [facility], Patient sensitive to inactive ingredients of manufacturers [...] of Treatment Not on file Insurance MEDICARE [facility] Care Teams Manager Trade Relationship Specialty Start Date End Date CatieMiguelShawnee [address] [place] [address] [place] [address] PCP - General Family Medicine 04/19/22
--- OUTSIDE RECORDS SUMMARY | 2024-12-13 16:52 | XMS_ITS | Encounter Summary ---
Author Organization [employer] Address [address] [facility] [address]t [place] [address] Care Team Providers Care Secondary History Teacher Name Role Phone Shawnee Haddad MD Primary Care Provider [phone] Encounter Details Date Type Department Care Team ([facility] st Contact Info) Description 08/04/2024 Orders Only [facility] [address] [place] [address] Gurdeep Bennett MD [address] [place] [address] Otomycosis (Primary Dx) Social History Tobacco Use [...] as of this encounter Plan of Treatment Upcoming Encounters Date Type Department Care Team (Late st Contact Info) Description 01/24/2025 10:15 AM EDT Office Visit [facility] [address] [place] [address] Shawnee Haddad MD [address] [place] [address] documented as of this encounter Visit Diagnoses Diagnosis Otomycosis- Primary Other specified dermatomycoses documented in this encounter Care Teams Secondary History Teacher Relationship Specialty Start Date End Date Shawnee Haddad MD [address] [place] [address] PCP - General Family Medicine 01/24/16 documented as of this encounter
--- OUTSIDE RECORDS SUMMARY | 2024-12-13 16:52 | XMS_ITS | Clinical Summary ---
Author Organization [facility] Address [address] [place] [address] Care Team Providers Care Rim Roller Setter Name Role Phone Shawnee Haddad Primary Care Provider [phone] Allergies Active Allergy Reactions Criticality Noted Date [...] Refills, Maintenance, 04/17/21 11:56:00 EDT, [facility], Patient sensitive to inactive ingredients of manufacturers [...] Health Maintenance Due Date Last Done Comments Medicare AWV 1941 Osteoporosis Screening 1990 RSV Vaccine (60+ years old and patients) (1 - 1-dose 75+ series) 2015 COVID-19 Vaccine (2023- season) 2024 11/07/2021, 12/20/2020, 11/22/2020 Influenza Vaccine (#1) 2024 2, 07/16/2021, 06/07/2020, Additional history exists Alcohol/Substance Use Screening 09/15/2024 Depression Screening and Follow-Up 09/15/2024 Health Care Proxy Review 09/15/2024 Social Drivers of Health Annual Screening 09/15/2024 DTaP,Tdap,and Td Vaccines (2 - Td or Tdap) 06/25/2028 06/25/2018, 05/12/2017 Pneumococcal Vaccine: 50+ Years Completed 06/25/2018, 07/30/2016, 03/19/2015 Zoster Vaccines Completed 01/30/2021, 11/17/2019 Hepatitis B Vaccines Aged Out No long er eligible based on patient's age to complete this topic Insurance MEDICARE [facility] Care Teams Rim Roller Setter Relationship Specialty Start Date End Date Shawnee Haddad [address] [place] [address] PCP - General Family Medicine 04/19/22
--- OUTSIDE RECORDS SUMMARY | 2024-12-13 16:52 | XMS_ITS | Encounter Summary ---
Author Organization [employer] Address [address] [facility] 7t [place] [address] Care Team Providers Care Cable Spooler Name Role Phone hSawnee Haddad MD Primary Care Provider [phone] Reason for Visit * Reason Onset Date Comments Appointment Request 02/17/2023 Encounter Details Date Type Department Care Team (Late Contact Info) Description 02/17/2023 Telephone [facility] MEDICINE [address] [place] [address] Shawnee Haddad MD [address] [place] [address] Appointment Request Social History Tobacco Use Types [...] - 02/17/2023 9:09 AM EDT T[facility] from [facility] requesting a Pre-Op appointment. Location: [facility] Procedure: Glaucoma Laser for left eye Date of Procedure: March 24 Lab: no EKG: no documented in this encounter Plan of Treatment Upcoming Encounters Date Type Department Care Team (Late Contact Info) Description 01/24/2025 10:15 AM EDT Office Visit [facility] [address] [place] [address] Shawnee Haddad MD [address] [place] [address] documented as of this encounter Visit Diagnoses Not on filedocumented in this encounter Care Teams Cable Spooler Relationship Specialty Start Date End Date Shawnee Haddad MD [address] [place] [phone] PCP - General Family Medicine 01/24/16 documented as of this encounter
== END 2024-12-13 14:54 | disposition home or self-care (01) ==
LOC: HO.HAP 14:53
PROVIDERS: Visit Provider Student in an Organized Health Care Education/Training Program
DX: Z46.1 Encounter for fitting and adjustment of hearing aid (principal); H90.3 Sensorineural hearing loss, bilateral
CPT/HCPCS: V5011; V5020; V5160; V5261; V5264

== ENCOUNTER 2025-01-04 14:58 | Outpatient (REF) | payer MEDICARE, MEDICAID, SELFPAY ==
--- NOTE | 2025-01-04 16:26 | MHC.AU.HA3 ---
Hearing Instrument Follow-Up- Binaural Date of Visit: 01/04/25 [employer] Used: daughter Right Ear: Make, Model, Color, Serial Number: Oticon Intent 2 R silver [id number] Continuous Mining Machine [employer] Repair Warranty: 12/02/2027 Continuous Mining Machine [employer] Loss and Damage Warranty: 12/02/2027 [facility] Service Plan: 12/13/25 Battery Size: Rechargeable Primer Inspector/Slim Tube: 2/ 85 Earmold/Dome/CShell/SlimTip:acrylic micromold half skeleton [id number] Type of Wax Guard: Oticon Prowax Dispensed By: [facility] Date of Fittin12/13/24 Left Ear: Make, Model, Color, Serial Number: Oticon Intent 2 R silver [id number] Continuous Mining Machine [employer]er Repair Warranty: 12/02/2027 [employer] Mining Machine Coal Miner Loss and Damage Warranty: 12/02/2027 [facility] Service Plan: 12/13/25 Battery Size: Rechargeable Primer Inspector/Slim Tube: 185 Earmold/Dome/CShell/SlimTip: acrylic micromold half skeleton [id number] [facility] 02/14/2025 Type of Wax Guard: Oticon Prowax Dispensed By: [facility] Date of Fittin12/13/24 Follow-Up Summary: Seen for follow up. Reports the hearing aids are helping her hear better. Notes the left hearing aid comes up over her ear at times. Put a 1/85 on the left, looks good, Heriberto reports it feels more secure. Recommendations: Recommendations: Hearing instrument follow-up or maintenance as needed. Diagnosis Code(s): Primary Diagnosis: H90.3 Bilateral Sensorineural Hearing Loss Signature: Provider: Phillip Ybarra, CCC-A
--- OUTSIDE RECORDS SUMMARY | 2025-01-04 17:53 | XMS_ITS | Referral Summary ---
Author Organization [facility] Address [address] [place] [address] Care Team Providers Care Brick Chimney Supervisor Name Role Phone Shawnee Haddad Primary Care Provider [phone] Allergies Active Allergy Reactions Criticality Noted Date [...] Refills, Maintenance, 04/17/21 11:56:00 EDT, [facility], Patient sensitive to inactive ingredients of manufacturers [...] of Treatment Not on file Insurance MEDICARE [facility] Care Teams Brick Chimney Supervisor Relationship Specialty Start Date End Date CatieMiguelShawnee [address] [place] [address] [place] [address] PCP - General Family Medicine 04/19/22
--- OUTSIDE RECORDS SUMMARY | 2025-01-04 17:53 | XMS_ITS | Encounter Summary ---
Author Organization [employer] Address [address] [place] [address] Care Team Providers Care Rustic Terrazzo Setter Name Role Phone Shawnee Haddad MD Primary Care Provider Reason for Visit * Reason Onset Date Comments Pre-op Exam 11/30/2024 Encounter Details Date Type Department Care Team ([facility] st Contact Info) Description 11/30/2024 Telephone [facility] MEDICINE [address] [place] [address] Shawnee Haddad MD [address] [place] [address] Pre-op Exam Social History Tobacco Use Types [...] Yes Surgeon's name: Bhavna Aleman Facility name: [facility] Surgeon's office number: [phone] Ext [phone] Surgeon's office fax number: [phone] Contact name (person you spoke with): Lois Last office note from surgeon requested: Yes Send Message to Ly Alcala and Jama Rush documented in this encounter Plan of Treatment Upcoming Encounters Date Type Department Care Team ([facility] Contact Info) Description 01/24/2025 10:15 AM EDT Office Visit [facility] MED [facility]S [address] [facility] [place] [address] Shawnee Haddad MD [address] [place] [address] documented as of this encounter Visit Diagnoses Not on filedocumented in this encounter Care Teams Rustic Terrazzo Setter Relationship Specialty Start Date End Date Shawnee Haddad MD [address] [place] [address], [place] [address] PCP - General Family Medicine 01/24/16 documented as of this encounter
--- OUTSIDE RECORDS SUMMARY | 2025-01-04 17:53 | XMS_ITS | Clinical Summary ---
Author Organization [facility] Address [address] [place] [address] Care Team Providers Care Crisis Intervention Specialist Name Role Phone Shawnee Haddad Primary Care Provider [phone] Allergies Active Allergy Reactions Criticality Noted Date [...] Vaccine ( season) 2024 11/07/2021, 12/20/2020, 11/22/2020 Alcohol/Substance Use Screening 09/15/2024 Depression Screening and Follow-Up 09/15/2024 Health Care Proxy Review 09/15/2024 Social Drivers of Health Annual Screening 09/15/2024 Influenza Vaccine (Season Ended) 2025 07/02/2022, 07/16/2021, 06/07/2020, Additional history exists DTaP,Tdap,and Td Vaccines (2 - Td or Tdap) 06/25/2028 06/25/2018, 05/12/2017 Pneumococcal Vaccine: 50+ Years Completed 06/25/2018, 07/30/2016, 03/19/2015 Zoster Vaccines Completed 01/30/2021, 11/17/2019 Hepatitis B Vaccines Aged Out No long er eligible based on patient's age to complete this topic Insurance MEDICARE [facility] Care Teams Crisis Intervention Specialist Relationship Specialty Start Date End Date Shawnee Haddad [address] [place] [address] PCP - General Family Medicine 04/19/22
--- OUTSIDE RECORDS SUMMARY | 2025-01-04 17:53 | XMS_ITS | Clinical Summary ---
Author Organization [facility] ity Address [address] [place] [address] Care Team Providers Care Postdoctoral Fellow Name Role Phone Unavailable Primary Care Provider [...] Vaccines (1 of 2) 1990 RSV Immunization Adult Patie nts (1 - 1-dose 75+ series) 2015 COVID-19 Vaccine ( - 2023-2 5 season) 2024 Influenza Vaccine (Season Ended) 2025 HIB Vaccines Aged Out No longer eligi [...] age to complete this topic Meningococcal B Vaccine Aged Out No l onger eligible based on patient's age to complete this topic RSV Immunization Patients Un prachi 20 months Aged Out No longer eligible b ased on patient's age to complete this topic Varicella Vaccines Aged Out No longer eligible based on patient's age to complete this topic
--- OUTSIDE RECORDS SUMMARY | 2025-01-04 17:53 | XMS_ITS | Encounter Summary ---
Author Organization [employer] Address [address] [facility] 7t [place] [address] Care Team Providers Care Piece Maker Name Role Phone Shawnee Haddad MD Primary Care Provider [phone] Encounter Details Date Type Department Care Team ([facility] st Contact Info) Description 08/04/2024 Orders Only [facility] [address] [place] [address] Gurdeep Bennett MD [address] [place] [address] Otomycosis (Primary Dx) Social History Tobacco Use [...] Description 01/24/2025 10:15 AM EDT Office Visit [facility] [address] [place] [address] Shawnee Haddad MD 505 [place] [address] documented as of this encounter Visit Diagnoses Diagnosis Otomycosis- Primary Other specified dermatomycoses documented in this encounter Care Teams Piece Maker Relationship Specialty Start Date End Date Shawnee Haddad MD [address] [place] [address] PCP - General Family Medicine 01/24/16 documented as of this encounter
--- OUTSIDE RECORDS SUMMARY | 2025-01-04 17:53 | XMS_ITS | Clinical Summary ---
Author Organization [employer] Address [address] [place] [address] 7t [place] [address] Care Team Providers Care Circus Laborer Name Role Phone Shawnee Haddad MD Primary Care Provider [phone] Allergies Active Allergy Reactions Criticality Noted Date [...] Description 12/07/2024 10:00 AM EDT Office Visit [facility] [address] [place] [address] Jonny Trammell MD UTI symptoms 11/30/[address] [facility] [address] [place] [address] Shawnee Haddad MD Pre-op Exam from Last 3 Months Immunizations Name Administration [...] Description 01/24/2025 10:15 AM EDT Office Visit [facility] [address] [place] [address] Shawnee Haddad MD [address] [place] [address] Health Maintenance Due Date Last Done Comments [...] Routine 12/07/2024 10:08 AM EDT UTI symptoms LIPID PANEL, STANDARD Routine 05/05/2024 10:32 AM EDT Lipid disorder Primary hypertension from Last 3 Months or Most Recently Relevant to Health Maintenance Results * Culture, Urine, Routine (12/07/2024 11:02 AM EDT) Urine Urine specimen obtained by clean catch procedure / Unknown 12/07/2024 11:02 AM EDT 12/07/2024 5:21 PM EDT Comment:[facility] - 12/09/2024 8:13 AM EDT Escherichia coli Quant > 100,000 cfu/mL Escherichia coli: Ampicillin >=32(R) Escherichia coli: Cefazolin (Urine) 2(S) Escherichia coli: Cefepime <=0.12(S) Escherichia coli: Ceftriaxone <=0.25(S) Escherichia coli: Ciprofloxacin <=0.06(S) Escherichia coli: Gentamicin <=1(S) Escherichia coli: Nitrofurantoin <=16(S) Escherichia coli: Trimethoprim/Sulfamethoxazole <=20(S) Specimen Source: Urine clean catch Jonny Trammell MD LAB MICROBIOLOGY - GENERAL ORDER SREEKANTH Final Result [facility] [address] [place] [phone] * (ABNORMAL) POCT urinalysis dipstick manually resulted (12/07/2024 10:08 AM EDT) Color, UA Yellow Clarity, UA Clear Glucose, [...] 10:32 AM EDT) Triglycerides 138 <150 mg/dL [facility] Comment:Desirable Triglyceri de: less than 150 mg/dLBorderline High Triglyceride 150-199 mg/dLHigh Triglyceride: 200-499 mg/dLVery High Triglyceride: greater than or equal to 5OO mg/dL Cholesterol 211(H) <200 mg/dL [facility] Comment:Desirable Cholestero l: less than 200 mg/dLBorderline High Cholesterol: 200-239 mg/dLHigh Cholesterol: greater than 239 mg/dL LDL Cholesterol Calculated 136(H) <100 mg/dL [facility] Comment:Desirable LDL: less than 100 mg/dLNear Optimal/Above Optimal LDL: 110- 129 mg/dLBorderline High LDL: 130-159 mg/dLHigh LDL: 160-189 mg/dLVery High LDL: greater than or equal to 190 mg/dL HDL Cholesterol 48 >40 mg/dL [facility] Comment:Desirable HDL: great er than 40 mg/dL Note: This HDL assay may give artificially low results in patients with liver disease. Blood Venous blood specimen / Unknown 05/05/2024 10:32 AM EDT 05/05/2024 2:09 PM EDT us Shawnee Haddad MD LAB BLOOD ORDERABLES Final Resul t [facility] [address] [place] [address] [phone] from Last 3 Months or Most Recently Relevant to Health Maintenance Insurance MEDICARE [facility] Care Teams Circus Laborer Relationship Specialty Start Date End Date Shawnee Haddad MD [address] [place] [address] PCP - General Family Medicine 01/24/16
--- OUTSIDE RECORDS SUMMARY | 2025-01-04 17:53 | XMS_ITS | Encounter Summary ---
Author Organization [employer] Address [address] [facility] 7t [place] [address] Care Team Providers Care Ethylbenzene Cracking Supervisor Name Role Phone Shawnee Haddad MD Primary Care Provider [phone] Reason for Visit * Reason Onset Date Comments Appointment Request 02/17/2023 Encounter Details Date Type Department Care Team (Late Contact Info) Description 02/17/2023 Telephone [facility] [address] [place] [address] Shawnee Haddad MD [address] [place] [address] Appointment Request Social History Tobacco Use Types [...] - 02/17/2023 9:09 AM EDT [facility] from [facility] requesting a Pre-Op appointment. Location: [facility] Procedure: Glaucoma Laser for left eye Date of Procedure: March 24 Lab: no EKG: no documented in this encounter Plan of Treatment Upcoming Encounters Date Type Department Care Team (Late Contact Info) Description 01/24/2025 10:15 AM EDT Office Visit [facility] [address] [place] [address] Shawnee Haddad MD [address] [place] [address] documented as of this encounter Visit Diagnoses Not on filedocumented in this encounter Care Teams Ethylbenzene Cracking Supervisor Relationship Specialty Start Date End Date Shawnee Haddad MD [address] [place] [address] PCP - General Family Medicine 01/24/16 documented as of this encounter
== END 2025-01-04 14:59 | disposition home or self-care (01) ==
LOC: HO.HAP 14:58
PROVIDERS: Visit Provider Student in an Organized Health Care Education/Training Program
DX: Z13.89 Encounter for screening for other disorder (principal)

== ENCOUNTER 2025-05-06 11:28 | Outpatient (REF) | payer MEDICARE, MEDICAID, SELFPAY ==
--- OUTSIDE RECORDS SUMMARY | 2025-05-06 11:31 | XMS_ITS | Clinical Summary ---
Author Organization [facility] Address [address] [place] [address] Care Team Providers Care Assistant Produce Manager Name Role Phone Shawnee Haddad Primary Care Provider [phone] Allergies Active Allergy Reactions Criticality Noted Date [...] Refills, Maintenance, 04/17/21 11:56:00 EDT, [facility], Patient sensitive to inactive ingredients of manufacturers [...] 11/07/2021, 12/20/2020, 11/22/2020 Alcohol/Substance Use Screening 09/15/2024 Health Care Proxy Review 09/15/2024 Influenza Vaccine (#1) 2025 2, 07/16/2021, 06/07/2020, Additional history exists DTaP,Tdap,and Td Vaccines (2 - Td or Tdap) 06/25/2028 06/25/2018, 05/12/2017 Pneumococcal Vaccine: 50+ Years Completed 06/25/2018, 07/30/2016, 03/19/2015 Zoster Vaccines Completed 01/30/2021, 11/17/2019 Hepatitis B Vaccines Aged Out No long er eligible based on patient's age to complete this topic Insurance MEDICARE [facility] Care Teams Assistant Produce Manager Relationship Specialty Start Date End Date Shawnee Haddad [address] [place] [phone] PCP - General Family Medicine 04/19/22
--- OUTSIDE RECORDS SUMMARY | 2025-05-06 11:31 | XMS_ITS | Clinical Summary ---
Author Organization [facility] Address [address] [facility] [address] [place] [phone] Phone Care Team Providers Care Silver Recovery Operator Name Role Phone Shawnee Haddad MD Primary Care Provider [phone] Allergies Active Allergy Reactions Criticality Noted Date Comments Brimonidine 02/07/2021 Medications dorzolamide-ping oloL (COSOPT) 22.3-6.8 mg/mL ophthalmic solution PONGA DEAN GOTA EN LOS DOS OJOS DOS VECES AL D A 1 Active acetaZOLAMIDE (DIAMOX) 250 MG tablet 1 Active ROCKLATAN 0.02-0.005 % Drop DROPS DROPS PONGA DEAN GOTA AL ACOSTARSE EN LOS DOS OJOS 1 Active FLOVENT HFA 220 mcg/actuation inhaler TOME DEAN INHALACI N POR V A ORAL DOS VECES AL D A 1 Active lisinopril (PRINIVIL,ZESTR IL) 40 MG tablet TOME DEAN TABLETA TODOS LOS D 1 Active pravastatin (PRAVACHOL) 40 MG tablet 1 Active prednisoLONE acetate (PRED FORTE) 1 % ophthalmic suspensionIndic ations:Status post glaucoma surgery Place 1 drop into the left eye 4 (four) times a day. Use after laser treatment as directed. 10 mL 1 1 Active Active Problems Problem Noted Date Diagnosed Date Primary open angle glaucoma of both eyes, severe stage 02/22/2021 Family History Medical History Relation Comments Glaucoma Sister Macular degeneration Neg Hx Relation Status Comments Sister Social History Tobacco Use Types Packs/Day Years Used Date Smoking Tobacco: Never Smokeless Tobacco: Never Alcohol Use Standard Drinks/Week Comments Not Currently 0 (1 standard drink = 0.6 oz pur e alcohol) Education Answer Date Recorded Are you interested in more education? Not on amaury e 01/11/2023 Are you concerned about learning? Not on file 01/11/2023 No 01/11/2023 No 01/11/2023 Digital Access Answer Date Recorded No 02/08/2023 No 02/08/2023 No 02/08/2023 Reliable internet access at home? Not on file 02/08/2023 Device with a working camera? Not on file Comments Unknown Sex and Gender Information Value Date Recorded Sex Assigned at Not on file Legal Sex Female 12:32 PM EDT Gender Identity Not on file Sexual Orientation Not on file Last Filed Vital Signs Vital Sign Reading Time Taken Comments Blood Pressure 136/63 02/21/2021 5:21 PM EDT Pulse 71 02/21/2021 5:21 PM EDT Temperature 36.7 C (98 F) 02/21/2021 3:43 PM EDT Respiratory Rate 16 02/21/2021 5:21 PM EDT Oxygen Saturation 97% 02/21/2021 5:21 PM EDT Inhaled Oxygen Concentration - - Weight - - Height - - Body Mass Index - - Plan of Treatment Health Maintenance Due Date Last Done Comments CREATININE LEVEL 1940 POTASSIUM LEVEL 1940 DEPRESSION SCREENING 1952 OSTEOPOROSIS SCREENING INITI AL (ONE-TIME) 2005 RSV VACCINE (1 - 1-dose 75+ series) 2015 COVID-19 VACCINE (2023-2 5 season) 2024 12/20/2020, 11/22/2020 Adult Td,Tdap Booster 06/25/2028 06/25/2018 , 05/12/2017 PNEUMOCOCCAL VACCINES (50+ years) Completed 06/25/2018, 07/30/2016 ZOSTER VACCINES Completed 01/30/2021, 11/17/2019 HEPATITIS A VACCINES Aged Out No long er eligible based on patient's age to complete this topic HIB VACCINES Aged Out No longer eligi ble based on patient's age to complete this topic MENINGOCOCCAL VACCINES (ACWY) Aged Out No longer eligible based on patient's age to complete this topic MENINGOCOCCAL VACCINES (B) Aged Out N o longer eligible based on patient's age to complete this topic Medical Devices Not on file Insurance MEDICARE PART A & B [employer] MEDICARE PART A & B [employer] Care Teams Silver Recovery Operator Relationship Specialty Start Date End Date Shawnee Haddad MD [address] [place] [phone] PCP - General Family Medicine 02/08/21 Additional Source Comments The information contained in this document represents components of the legal health record. It is not the complete legal health record.[facility]
--- OUTSIDE RECORDS SUMMARY | 2025-05-06 11:31 | XMS_ITS | Clinical Summary ---
Author Organization [facility] Address [address] [place] [address] Care Team Providers Care Turkey Roll Maker Name Role Phone Unavailable Primary Care Provider [...] - 1-dose 75+ series) 2015 COVID-19 Vaccine (1 - 2023-2 5 season) 2024 Depression Screening 09/15/2024 Influenza Vaccine (#1) 2025 HIB Vaccines Aged Out No longer [...]
[2025-05-06 15:49] LABS: MANUAL DIFF FLAG NO
[2025-05-06 16:10] LABS: Appearance Urine Clear; Glucose Urine UA Negative (Negative); PH 5.5 (5.0-9.0); Specific Gravity - Urine 1.020 (1.005-1.025)
[2025-05-06 16:16] LABS: Hematocrit 40.1 % (37.0-47.0); Hemoglobin 13.1 g/dl (12.0-16.0); Imm Gran Abs Auto 0.02 X10*3/uL (0.00-0.03); Imm Gran Pct Auto 0.4 % (0.0-0.4); Lymphocytes Absolute Auto 1.5 X10*3/uL (1.2-4.9); Mean Corpuscular HGB Conc 32.7 g/dl (31.0-35.0); Mean Corpuscular Hemoglobin 29.7 pg (27.0-33.0); Mean Corpuscular Volume 90.9 fL (80.0-98.0); NRBC Abs Auto 0.000 X10*3/uL (0.0-0.012); NRBC Pct Auto 0.0 /100WBC (0.0-0.2); Platelet Count 398 X10*3/uL (160-400); Red Blood Count 4.41 X10*6/uL (4.20-5.50); White Blood Count 4.9 X10*3/uL (4.8-10.8)
[2025-05-06 16:41] LABS: Microalbum/Creatinine Ratio Ur 14.4 ug/mg cr (<30)
[2025-05-06 16:44] LABS: Alanine Aminotransferase 23 U/L (0-31); Albumin Level 4.7 g/dL (3.5-5.0); Alkaline Phosphatase 81 U/L (39-117); Anion Gap 13 (12-20); Aspartate Amino Transferase 37 U/L (5-31); Blood Urea Nitrogen 16 mg/dL (9-16); Calcium 9.6 mg/dL (8.4-10.2); Carbon Dioxide 22 mmol/L (22-29); Chloride 103 mmol/L (96-108); Cholesterol 197 mg/dL (<200); Estimated Glomerular Filt Rate > 60; HDL Cholesterol 41 mg/dL (>40); Potassium 4.8 mmol/L (3.3-5.1); Sodium 133 mmol/L (135-145); Total Protein 7.7 g/dL (6.5-8.0); Triglycerides 186 mg/dL (<150)
== END 2025-05-06 11:29 | disposition home or self-care (01) ==
LOC: HO.CHCLDS 11:28
PROVIDERS: Visit Provider Pediatrics
DX: H40.1133 Primary open-angle glaucoma, bilateral, severe stage (principal); J45.30 Mild persistent asthma, uncomplicated; E78.9 Disorder of lipoprotein metabolism, unspecified; M65.331 Trigger finger, right middle finger; I10 Essential (primary) hypertension
CPT/HCPCS: 36415; 80048; 80061; 80076; 81001; 82043; 82570; 84443; 85025

== ENCOUNTER 2025-07-28 16:20 | Outpatient (REF) | payer MEDICARE, MEDICAID, SELFPAY ==
--- OUTSIDE RECORDS SUMMARY | 2025-07-28 11:20 | XMS_ITS | Encounter Summary ---
Author Organization [employer] Address [address] [facility] [address] 7t [place] [address] Care Team Providers Care Manager Culinary Name Role Phone Hoda Blevins CNP Primary Care Provider [phone] Reason for Visit * Reason Comments UTI Encounter Details Date Type Department Care Team ([facility] st Contact Info) Description 07/28/2025 11:20 AM EST Office Visit [facility] [address] [place] [address] [phone] Ivan Galeana MD [address] [place], [place] [phone] Acute cystitis with hematuria Social History Tobacco Use Types Packs/Day Years Used Date Smoking Tobacco: Never Passive Smoke Exposure: Never Smokeless Tobacco: Never Depression Answer Date Recorded Patient Health Questionnaire-9 Score 0 03/30/2025 Patient Health Questionnaire-9 Score 0 03/30/2025 Last PHQ-9: Questionnaire Data Not on file 0 03/30/2025 Housing Stability Answer Date Recorded What is [...] off services in your home? No 04/08/2024 Depression Answer Date Recorded Patient Health Questionnaire-2 Score 0 03/30/2025 Internet Access Answer Date Recorded Internet Access Q1 Yes 05/17/2024 Internet Access Q2 Not on file 05/17/2024 Comments No Sex and Gender Information Value Date Recorded Sex Assigned at Female 07/15/2022 10:29 AM EDT Legal Sex Female 10:29 AM EDT Gender Identity Female 03/30/2025 2:05 PM EDT Sexual Orientation Choose not to disclose 2021 10:29 AM EDT documented as of this encounter Last Filed Vital Signs Vital Sign Reading Time Taken Comments Blood Pressure 136/79 07/28/2025 10:57 AM EST Pulse 80 07/28/2025 10:57 AM EST Temperature 36.6 C (97.9 F) 07/28/2025 10:57 AM EST Respiratory Rate 16 07/28/2025 10:57 AM EST Oxygen Saturation 97% 07/28/2025 10:57 AM EST Inhaled Oxygen Concentration - - Weight 60.8 kg (134 lb) 07/28/2025 10:57 AM EST Height - - Body Mass Index 27.18 06/01/2025 2:47 PM EDT documented in this encounter Progress Notes * Ivan Galeana MD - 07/28/2025 11:20 AM EST Subjective History was provided by the patient and adult daughter. Heriberto Terrazas is a 84 y.o. female who presents to [facility] with 3-day duration of urinary frequency, suprapubic pressure, and dysuria. Denies F/C/N/V/D. Denies flank/back pain. No gross hematuria. She previously had UTI back in 04/2025. Objective Vitals: 07/28/25 1057 BP: 136/79 BP Location: Right arm Patient Position: Sitting BP Cuff Size: Adult Pulse: 80 Resp: 16 Temp: 97.9 ??F (36.6 ??C) TempSrc: Oral SpO2: 97% Weight: 134 lb (60.8 kg) Physical Exam Vitals reviewed. Constitutional: General: She is not in acute distress. Appearance: Normal appearance. She is not ill-appearing, toxic-appearing or diaphoretic. HENT: Head: Normocephalic and atraumatic. Right Ear: External ear normal. Left Ear: External ear normal. Nose: Nose normal. Mouth/Throat: Mouth: Mucous membranes are dry. Pharynx: Oropharynx is clear. Eyes: Extraocular Movements: Extraocular movements intact. Conjunctiva/sclera: Conjunctivae normal. Cardiovascular: Rate and Rhythm: Normal rate and regular rhythm. Heart sounds: Normal heart sounds. Pulmonary: Effort: Pulmonary effort is normal. No respiratory distress. Breath sounds: Normal breath sounds. No wheezing, rhonchi or rales. Chest: Chest wall: No tenderness. Abdominal: General: Abdomen is flat. There is no distension. Palpations: Abdomen is soft. Tenderness: There is no abdominal tenderness. There is no right CVA tenderness, left CVA tenderness, guarding or rebound. Musculoskeletal: General: Normal range of motion. Cervical back: Neck supple. Skin: General: Skin is warm and dry. Neurological: General: No focal deficit present. Mental Status: She is alert and oriented to person, place, and time. Psychiatric: Mood and Affect: Mood normal. Behavior: Behavior normal. Office Visit on 07/28/2025 Component Date Value Ref Range Status Color, UA 07/28/2025 Yellow Final Clarity, UA 07/28/2025 Clear Final Glucose, UA 07/28/2025 Negative Final Bilirubin, UA 07/28/2025 Negative Final Ketones, UA 07/28/2025 Negative Final Spec Grav, UA 07/28/2025 1.015 Final Blood, UA 07/28/2025 Positive (A) Negative, None Detected Final Moderate pH, UA 07/28/2025 7.0 Final Protein, UA 07/28/2025 1+ 70+ Final 30Mg Urobilinogen, UA 07/28/2025 0.2 Final Leukocytes, UA 07/28/2025 Many (A) Negative, Rare, Trace Final Nitrite, UA 07/28/2025 Positive (A) Negative, None Detected Final Appearance, UA 07/28/2025 OK Final Heriberto was seen today for uti. Diagnoses and all orders for this visit: Acute cystitis with hematuria - POCT urinalysis dipstick manually resulted (CPT 97405) - Culture, Urine, Routine - sulfamethoxazole-trimethoprim (Bactrim DS) 800-160 MG tablet; Take 1 tablet by mouth 2 times daily for 3 days. Patient with a clinical presentation of acute UTI No clinical evidence of acute abdomen or pyelonephritis Will send out UCx and start antibiotic medication Start Bactrim DS 1 tab BID for 3 days Previously tolerated the medication well Potential adverse effects of the medication reviewed Probiotic use discussed Allergies reviewed Discussed strategies to prevent future infections Advised to contact the clinic if no improvement of symptoms Indications for UC/ER use reviewed documented in this encounter Plan of Treatment Scheduled Orders Name Type Priority Associated Diagnoses Orde r Schedule Culture, Urine, Routine Microbiology Routine Acute cystitis with hematuria Ordered: 07/28/2025 documented as of this encounter Procedures Procedure Name Priority Date/Time Associated Diagnosis Comments POCT URINALYSIS DIPSTICK Routine 07/28/2025 11:06 AM EST Acute cystitis with hematuria documented in this encounter Results * (ABNORMAL) POCT urinalysis dipstick manually resulted (CPT 49072) (07/28/2025 11:06 AM EST) Color, UA Yellow Clarity, UA Clear Glucose, UA Negative Bilirubin, UA Negative Ketones, UA Negative Spec Grav, UA 1.015 Blood, UA Positive(A) Negative, None Detected Comment:Moderate pH, UA 7.0 Protein, UA 1+ 70+ Comment:30Mg Urobilinogen, UA 0.2 Leukocytes, UA Many(A) Negative, Rare, Trace Nitrite, UA Positive(A) Negative, None Detected Appearance, UA OK Urine (Urine, Random) 07/28/2025 11:06 AM EST us Ivan Galeana MD POINT OF CARE TEST ENTER/EDIT OR DERABLES Final Result documented in this encounter Visit Diagnoses Diagnosis Acute cystitis with hematuria documented in this encounter Additional Health Concerns Assessment Noted Time PHQ-9 Depression Total Score: 0 03/30/20 25 2:40 PM EDT documented as of this encounter Care Teams Manager Culinary Relationship Specialty Start Date End Date Hoda Blevins CNP [address] [place] [phone] PCP - General Family Medicine 07/14/25 documented as of this encounter
--- OUTSIDE RECORDS SUMMARY | 2025-07-28 18:51 | XMS_ITS | Encounter Summary ---
Author Organization [employer] Address [address] [facility] [address] 7t [place] [address] Care Team Providers Care Online Marketing Specialist Name Role Phone Shawnee Haddad MD Primary Care Provider [phone] Hoda Blevins CNP Primary Care Provider [phone] Reason for Visit * Reason Onset Date Comments Pre-op Exam 11/30/2024 Encounter Details Date Type Department Care Team (Late st Contact Info) Description 11/30/2024 Telephone [facility] [address] [place] [address] Shawnee Haddad MD [address] [place], [place] [phone] Pre-op Exam Social History Tobacco Use Types Packs/Day Years Used Date Smoking Tobacco: Never Passive Smoke Exposure: Never Smokeless Tobacco: Never Housing Stability Answer Date Recorded What is your housing situation today? I have kyle sing 04/08/[address] you li [...] Yes Surgeon's name: Bhavna Aleman Facility name: [facility] Surgeon's office number: [phone] Surgeon's office fax number: [phone] Contact name (person you spoke with): Lois Last office note from surgeon requested: Yes Send Message to Ly Alcala and Jama Rush documented in this encounter Plan of Treatment Not on file documented as of this encounter Visit Diagnoses Not on filedocumented in this encounter Care Teams Online Marketing Specialist Relationship Specialty Start Date End Date Shawnee Haddad MD [address] [place] [address] PCP - General Family Medicine 01/24/16 07/13/25 Hoda Blevins CNP [address] [place] [address] PCP - General Family Medicine 07/14/25 documented as of this encounter
--- OUTSIDE RECORDS SUMMARY | 2025-07-28 18:51 | XMS_ITS | Encounter Summary ---
Author Organization [employer] Address [address] [facility] [address] 7t [place] [address] Care Team Providers Care Booth Operator Name Role Phone Shawnee Haddad MD Primary Care Provider [phone] Hoda Blevins CNP Primary Care Provider [phone] Reason for Visit * Reason Comments Med Refill Encounter Details Date Type Department Care Team ([facility] st Contact Info) Description 05/11/2025 Refill [facility] [address] [place], [place] [phone] Jonny Trammell MD [address] [place] [address] Social History Tobacco Use Types Packs/Day Years [...] Diagnoses Not on filedocumented in this encounter Additional Health Concerns Assessment Noted Time PHQ-9 Depression Total Score: 0 03/30/20 2:40 PM EDT documented as of this encounter Care Teams Booth Operator Relationship Specialty Start Date End Date Shawnee Haddad MD [address] [place] [address] PCP - General Family Medicine 01/24/16 07/13/25 Hoda Blevins CNP [address] [place] [address] PCP - General Family Medicine 07/14/25 documented as of this encounter
--- OUTSIDE RECORDS SUMMARY | 2025-07-28 18:51 | XMS_ITS | Encounter Summary ---
Author Organization [employer] Address [address] [facility] [address] 7t [place] [address] Care Team Providers Care Logistics Specialist Name Role Phone Shawnee Haddad MD Primary Care Provider [phone] Hoda Blevins CNP Primary Care Provider [phone] Reason for Visit * Reason Onset Date Comments Appointment Request 02/17/2023 Encounter Details Date Type Department Care Team (Late st Contact Info) Description 02/17/2023 Telephone [facility] MEDICINE [address] [place] [address] Shawnee Haddad MD [address] [place] [address] Appointment Request Social History Tobacco Use Types [...] Rebecca Menon - 02/17/2023 9:09 AM EDT Damian from [place] [facility] requesting a Pre-Op appointment. Location: [facility] Procedure: Glaucoma Laser for left eye Date of Procedure: March 24 Lab: no EKG: no documented in this encounter Plan of Treatment Not on file documented as of this encounter Visit Diagnoses Not on filedocumented in this encounter Care Teams Logistics Specialist Relationship Specialty Start Date End Date Shawnee Haddad MD [address] [place] [address] PCP - General Family Medicine 01/24/16 07/13/25 Hoda Blevins CNP [address] [place] [address] PCP - General Family Medicine 07/14/25 documented as of this encounter
--- OUTSIDE RECORDS SUMMARY | 2025-07-28 18:51 | XMS_ITS | Encounter Summary ---
Author Organization [employer] Address [address] [facility] [address] 7[address] [place] [address] Care Team Providers Care Legal Secretary Receptionist Name Role Phone Shawnee Haddad MD Primary Care Provider [phone] Hoda Blevins CNP Primary Care Provider [phone] Reason for Visit * Reason Comments Med Refill Encounter Details Date Type Department Care Team ([facility] st Contact Info) Description 05/11/2025 Refill [facility] [address] [place] [address] Zuly Cardenas MD [address] [place] [address] Social History Tobacco Use Types Packs/Day Years [...] documented as of this encounter Care Teams Legal Secretary Receptionist Relationship Specialty Start Date End Date Shawnee Haddad MD [address] [place] [address] PCP - General Family Medicine 01/24/16 07/13/25 Hoda Blevins CNP [address] [place] [address] PCP - General Family Medicine 07/14/25 documented as of this encounter
--- OUTSIDE RECORDS SUMMARY | 2025-07-28 18:52 | XMS_ITS | Encounter Summary ---
Author Organization [employer] Address [address] [facility] 7t [place] [address] Care Team Providers Care Valve Inspector Name Role Phone Shawnee Haddad MD Primary Care Provider [phone] Hoda Blevins CNP Primary Care Provider [phone] Encounter Details Date Type Department Care Team ([facility] st Contact Info) Description 08/04/2024 Orders Only [facility] [address] [place] [address] Gurdeep Bennett MD [address] [place] [address] Otomycosis (Primary Dx) Social History Tobacco Use [...] dermatomycoses documented in this encounter Care Teams Valve Inspector Relationship Specialty Start Date End Date Shawnee Haddad MD [address] [place] [phone] PCP - General Family Medicine 01/24/16 07/13/25 Hoda Blevins CNP [address] [place] [address] PCP - General Family Medicine 07/14/25 documented as of this encounter
--- OUTSIDE RECORDS SUMMARY | 2025-07-28 18:52 | XMS_ITS | Clinical Summary ---
Author Organization [employer] Address [address] [facility] 7t [place] [address] Care Team Providers Care Waste Machine Tender Name Role Phone Hoda Blevins CNP Primary Care Provider [phone] Allergies Active Allergy Reactions Criticality Noted Date Comments Aspirin Hives,Rash High 01/24/2016 Other Reaction(s): rash Brimonidine Rash Low 02/07/2021 Medications timolol (Timoptic) [...] FOUR TIMES DAILY DIRECTED 10/17/19 23 Active dorzolamide-timolo l (Cosopt) 22.3-6.8 MG/ML ophthalmic solution PONGA DEAN GOTA EN LOS DOS OJOS DOS VECES AL D A 09/24/19 23 Active docusate sodium (Colace) 100 MG capsule TOME 1 CAPSULA POR VIA ORAL DOS VECES AL ROCK NEEDED FOR CONSTIPATION NOT COVERED 06/14/20 22 Active naproxen (Naprosyn) 500 MG tablet TOME DEAN TABLETA TODOS LOS D 02/24/20 23 Active Spacer/Aero-Holdin g Chambers deviceIndications: Mild persistent asthma with (acute) exacerbation 1 each Every 4-6 hours as needed (SOB, wheezing). 1 each 1 05/07/20 23 Active Blood Pressure Monitor kitIndications:[place]ori montana hypertension 1 each 2 times daily. 1 kit 05/07/20 23 Active fluticasone (Flonase Allergy Relief) 50 MCG/ACT nasal spray Administer 1 spray into each nostril 2 times daily. Shake gently. Before first use, prime pump. After use, clean tip and replace cap. 16 g 12 01/09/20 24 Active NIFEdipine XL (Procardia XL) 60 MG 24 hr tabletIndications: Primary hypertension TAKE 1 TABLET BY MOUTH EVERY DAY 90 tablet 3 08/02/20 24 Active clotrimazole (Lotrimin) 1 % external solutionIndication s:Otomycosis Apply topically 2 times a day x 10 days. 10 mL 08/04/20 24 Active pravastatin (Pravachol) 40 MG tablet TAKE 1 TABLET BY MOUTH EVERY DAY 90 tablet 3 09/20/19 25 Active lisinopril 40 MG tabletIndications: Primary hypertension TAKE 1 TABLET BY MOUTH EVERY DAY 90 tablet 3 09/20/19 25 Active albuterol 108 (90 Base) MCG/ACT inhalerIndications :Mild persistent asthma with (acute) exacerbation Inhale 2 puffs Every 4-6 hours as needed for wheezing or shortness of breath. 18 g 1 09/20/19 25 Active fluticasone (Flovent) 220 MCG/ACT inhalerIndications :Mild persistent asthma with (acute) exacerbation INHALE 2 PUFFS IN THE MORNING AND AT BEDTIME. RINSE MOUTH WITH WATER AFTER USE TO REDUCE AFTERTASTE AND INCIDENCE OF CANDIDIASIS. DO NOT SWALLOW. 18 g 3 10/05/19 25 Active brimonidine (AlphaGAN) 0.2 % ophthalmic solution PONGA DEAN GOTA EN THELMA DERECHO DOS VECES AL D A 03/29/20 25 Active acetaZOLAMIDE (Diamox) 250 MG tablet Take 500 mg by mouth 2 times daily. 01/26/20 21 Active clotrimazole-betam ethasone (Lotrisone) cream See Instructions, JOSE C [facility] [place], # 45 Gm, 1 Refills, [facility] [id number], 30, JOSE C [facility] [place], 162.56, cm, 07/17/21 15:30:00 EDT, Height, 58.5, kg, 07/17/21 15:30:00 EDT, Dry Weight 12/19/19 Active dorzolamide (Trusopt) 2 % ophthalmic solution Administer 1 drop into affected eye(s). 03/18/20 Active gatifloxacin (Zymar) 0.5 % solution ophthalmic solution PLEASE SEE ATTACHED FOR DETAILED DIRECTIONS 03/21/20 Active Rocklatan 0.02-0.005 % solution PONGA DEAN GOTA EN LOS DOS OJOS TODOS LOS D POR LA NOCHE Active ofloxacin (Ocuflox) 0.3 % ophthalmic solution PONGA DEAN GOTA EN THELMA DERECHO CUATRO VECES AL D A 04/11/20 25 Active albuterol (2.5 MG/3ML) 0.083% nebulizer solutionIndication s:Mild persistent asthma without complication Take 3 mL (2.5 mg) by nebulization every 4 (four) hours if needed for wheezing or shortness of breath. 75 mL 3 05/06/20 25 Active acetaminophen (Tylenol) 325 MG tablet Take 650 mg by mouth every 6 (six) hours if needed. 05/28/20 Active acetaminophen (Tylenol) 325 MG capsule Take 650 mg by mouth. 05/28/20 Active atropine 1 % ophthalmic solution PONGA DEAN GOTA EN THELMA FRANCISCA DOS VECES AL D A 05/21/20 25 Active estradiol (Estrace) 0.1 MG/GM vaginal cream See Instructions, 1 gram Vaginally at bedtime 2 times per week, # 42 Gm, 4 Refills, Maintenance, 04/17/21 11:56:00 AM EDT, [facility], Patient sensitive to inactive ingredients of manufacturers drugs - compound makes a significant difference for this patient, 149.7, cm, 04/17/21 11:00:00 EDT, Height, 60, kg, 04/17/21 11:00:00 EDT, Dry Weight 04/17/20 Active hydrOXYzine HCl (Atarax) 10 MG tablet 1 tablet. 02/17/20 Active ibuprofen 600 MG tablet Take 600 mg by mouth every 6 (six) hours if needed. 05/28/20 Active oxyCODONE (Roxicodone) 5 MG immediate release tablet Take 5 mg by mouth. 09/13/20 21 Active albuterol 108 (90 Base) MCG/ACT inhaler Inhale 2 puffs if needed in the morning, at noon, in the evening, and at bedtime. 01/05/20 22 Active albuterol 108 (90 Base) MCG/ACT inhaler Inhale every 6 (six) hours. 01/05/20 Active dorzolamide-timolo l (Cosopt) 2-0.5 % ophthalmic solution Administer 1 drop into affected eye(s) 2 times daily. 05/10/20 22 Active prednisoLONE acetate (Pred-Forte) 1 % ophthalmic suspension Administer 1 drop into affected eye(s) 4 times daily. 02/22/20 21 Active olopatadine (Patanol) 0.1 % ophthalmic solutionIndication s:Allergic conjunctivitis of left eye Administer 1 drop into the left eye 2 times daily. 5 mL 06/01/20 25 026 Active sulfamethoxazole-t rimethoprim (Bactrim DS) 800-160 MG tabletIndications: Acute cystitis with hematuria Take 1 tablet by mouth 2 times daily for 3 days. 6 tablet 07/28/20 25 025 Active Active Problems Problem Noted Date Diagnosed Date Discharge of left ear present 08/02/2024 Mild persistent asthma without complication 10/16 Lipid disorder 10/30/2022 Primary open angle glaucoma of both eyes, severe stage 02/22/2021 Encounters Date Type Department Care Team Description 07/28/2025 11:20 AM EST Office Visit [facility] [address] [place] [address] Ivan Galeana MD Acute cystitis with hematuria 07/21/2025 Telephone [facility] [address] [place] [address] Hoda Blevins CNP Prior Authorization 06/20/2025 Telephone [facility] [address] [place] [address] Shawnee Haddad MD 06/01/2025 2:45 PM EDT Office Visit [facility] [address] [place] [address] Hoda Blevins CNP Mild persistent asthma without complication (Primary Dx); Pre-op evaluation; Primary hypertension; Allergic conjunctivitis of left eye 06/01/2025 Travel 05/27/2025 Telephone [facility] [address] [place] [address] Shawnee Haddad MD chart prep 05/26/[address] [address] Shawnee Haddad MD Pre Op 05/12/2025 Results Follow-Up [facility] [address] [place] [address] Hillary Allison RN Albumin, Random Urine W/Creatinine, Basic Metabolic Panel, Fasting, CBC auto differential, Additional followed-up results: 4 05/11/2025 Refill [facility] [address] [place] [address] Jonny Trammell MD 05/11/2025 Refill [facility] [address] [place] [address] Zuly Cardenas MD 05/11/[address] [address] Shawnee Haddad MD Durable Medical Equipment 05/09/2025 Telephone [facility] [address] [place] [address] Shawnee Haddad MD 05/06/2025 10:00 AM EDT Office Visit [facility] [address] [place] [address] Kathrine Carrillo MD Primary open angle glaucoma of both eyes, severe stage (Primary Dx); Mild persistent asthma without complication; Lipid disorder; Trigger middle finger of right hand; Primary hypertension; Blindness of both eyes 05/06/2025 Travel 05/05/2025 Telephone [facility] [address] [place] [address] Shawnee Haddad MD 05/02/2025 10:20 AM EDT Office Visit [facility] [address] [place] [phone] Zuly Cardenas MD Trigger middle finger of right hand (Primary Dx); UTI symptoms; Acute cystitis with hematuria 05/02/2025 Travel from Last 3 Months Immunizations Immunization Administration Dates Next Due Influenza High-dose Quadriva lent Preservative Free 08/21/2023,07/02/2022,07/16/2021,06/07 Influenza injectable quadriv alent IIV4 with preservative 07/26/2019,06/25/2018,06/10/2017,06/27 Influenza, High Dose Seasona l, Preservative Free 07/01/2024 Pneumococcal Conjugate PCV 13 07/30/2016 Pneumococcal Polysaccharide PPSV23 06/25/2018, RSV Bivalent 05/06/2025 TD (adult), 2 Lf tetanus tox oid, preservative free, adsorbed 05/12/2017 Tdap 06/25/2018 Zoster, Recombinant 01/30/2021,11/17/2019 Social History Tobacco Use Types Packs/Day Years Used Date Smoking Tobacco: Never Passive Smoke Exposure: Never Smokeless Tobacco: Never Tobacco Cessation:Counseling Given: Not Answered Depression Answer Date Recorded Patient Health Questionnaire-9 [...] (134 lb) 07/28/2025 10:57 AM EST Height 149.6 cm (4' 10.88 ) 06/01/2025 2:47 PM E DT Body Mass Index 27.18 06/01/2025 2:47 PM EDT Plan of Treatment Health Maintenance Due Date Last Done Comments COVID-19 Vaccine ( season) 2025 11/07/2021, 12/20/2020, 11/22/2020 Influenza Vaccine (#1) 2025 , 08/21/2023, 07/02/2022, Additional history exists Alcohol/Substance Use Screening 03/30/2026 03/30/2025 Depression Screening 03/30/2026 03/30/2025, 03/30/20 25 SDOH Screening 03/30/2026 03/30/2025 Tobacco Screening 05/06/2026 05/06/2025 DTaP/Tdap/Td Vaccines (2 - Td or Tdap) 06/25/2028 06/25/2018, 05/12/2017 Lipid Panel 05/06/2030 05/06/2025, 04/16, 08/15/2022, Additional history exists Pneumococcal Vaccine: 50+ Years Completed 06/25/2018, 07/30/2016, 03/19/2015 Zoster Vaccines Completed 01/30/2021, 11/17/2019 RSV Patients and Patients Aged 60 years or older Completed 05/06/2025 HIB Vaccines Aged Out No longer eligi [...] 11:06 AM EST Acute cystitis with hematuria ECG 12-LEAD Routine 06/21/2025 10:41 AM EDT Pre-op evaluation URINALYSIS, COMPLETE, WITH REFLEX TO CULTURE Routine 05/06/2025 11:35 AM EDT Primary open angle glaucoma of both eyes, severe stage Mild persistent asthma without complication Lipid disorder Trigger middle finger of right hand Primary hypertension ALBUMIN, RANDOM URINE W/CREATININE Routine 05/06/2025 11:35 AM EDT Primary open angle glaucoma of both eyes, severe stage Mild persistent asthma without complication Lipid disorder Trigger middle finger of right hand Primary hypertension LIPID PANEL, STANDARD Routine 05/06/2025 11:30 AM EDT Primary open angle glaucoma of both eyes, severe stage Mild persistent asthma without complication Lipid disorder Trigger middle finger of right hand Primary hypertension TSH W/REFLEX TO FT4 Routine 05/06/2025 1 1:30 AM EDT Primary open angle glaucoma of both eyes, severe stage Mild persistent asthma without complication Lipid disorder Trigger middle finger of right hand Primary hypertension HEPATIC FUNCTION PANEL Routine 05/06/2025 11:30 AM EDT Primary open angle glaucoma of both eyes, severe stage Mild persistent asthma without complication Lipid disorder Trigger middle finger of right hand Primary hypertension CBC WITH AUTO DIFFERENTIAL Routine 05/06/2025 11:30 AM EDT Primary open angle glaucoma of both eyes, severe stage Mild persistent asthma without complication Lipid disorder Trigger middle finger of right hand Primary hypertension BASIC METABOLIC PANEL, FASTING Routine 05/06/2025 11:30 AM EDT Primary open angle glaucoma of both eyes, severe stage Mild persistent asthma without complication Lipid disorder Trigger middle finger of right hand Primary hypertension POCT URINALYSIS DIPSTICK Routine 05/02/2025 10:24 AM EDT UTI symptoms from Last 3 Months Results * (ABNORMAL) POCT urinalysis dipstick manually resulted (CPT 27490) (07/28/2025 11:06 AM EST) Only the most recent of2 resultswithin the [...] Urine (Urine, Random) 07/28/2025 11:06 AM EST Ivan Galeana MD POINT OF CARE TEST ENTER/EDIT OR DERABLES Final Result * ECG 12 lead (06/21/2025 10:41 AM EDT) Narrative Hoda Blevins CNP - 06/21/2025 10:41 AM EDT NSR, Rate 65bpm, no ST segmental changes, normal ECG. us Hoda lBevins CNP ECG ORDERABLES Final Res ult * Urinalysis, Complete, with Reflex to Culture (05/06/2025 11:35 AM EDT) Color Urine Yellow [facility] Appearance Urine Clear [facility] PH 5.5 5.0 - 9.0 [facility] Glucose Urine UA Negative Negative mg/dL [facility] Urine Blood Negative Negative [facility] Specific [place] - Urine 1.020 1.005 - 1.025 [facility] Urine Protein Negative Neg-Trace mg/dL [facility] Urine Ketones Negative Negative mg/dL [facility] Nitrite Urine Negative Negative [facility] Leukocyte Esterase Urine Negative Negative [facility] RBC Urine 0-2 0 - 2 /HPF [facility] Urine WBC 0-5 0 - 5 /HPF [facility] Urine Squamous Epithelial Cell 0-2 0 - 2 /HPF [facility] Urine Bacteria None Seen None Seen [facility] Hyaline Casts, Urine 0-2 0 - 2 /LPF [facility] Urine 05/06/2025 11:3 5 AM EDT 05/06/2025 4:02 PM EDT Narrative [facility] - 05/06/2025 4:23 PM EDT [id number], Clean Catch us Kathrine Carrillo MD LAB URINE ORDERABLES Final Re sult [facility] [address] [place] [address] [phone] * Albumin, Random Urine W/Creatinine (05/06/2025 11:35 AM EDT) Creatinine, Urine 83.19 mg/dL [facility] Microalbumin Urine 12.0 mg/L [facility] Microalbum Creatinine Ratio Ur 14.4 <30 ug/mg cr [facility] Comment:Albumin/Creatinine R atio Reference Ranges: Normal: < 30 ug/mg creatinine Microalbuminuria: 30 - 300 ug/mg creatinineClinical Albuminuria: > 300 ug/mg creatinine Urine (Urine, Random) 05/06/2025 11:35 AM EDT 05/06/2025 4:02 PM EDT Kathrine Carrillo MD LAB URINE ORDERABLES Final Re sult Performing Organization Address [facility] Co de Phone Number [facility] [address] [place] [address] [phone] * (ABNORMAL) Basic Metabolic Panel, Fasting (05/06/2025 11:30 AM EDT) Sodium 133(L) 135 - 145 mmol/L [facility] Potassium 4.8 3.3 - 5.1 mmol/L [facility] Comment:Slight Hemolysis.Int erpret result with caution. Chloride 103 96 - 108 mmol/L [facility] Carbon Dioxide 22 22 - 29 mmol/L [facility] Anion Gap 13 12 - 20 [facility] Urea Nitrogen (BUN) 16 9 - 16 mg/dL [facility] Creatinine, Serum 0.64 0.5 - 1.4 mg/dL [facility] Estimated Glomerular Filt Rate >60 [facility] Comment:Chronic Kidney Disea se: Estimated GFR < 60 mL/min/[id number] Kidney Disease: Estimated GFR < 15 mL/min/1.73m2 Glucose Fasting 91 60 - 99 mg/dL [facility] Calcium 9.6 8.4 - 10.2 mg/dL [facility] Blood Venous blood specimen / Unknown 05/06/2025 11:30 AM EDT 05/06/2025 3:56 PM EDT us Kathrine Carrillo MD LAB BLOOD ORDERABLES Final Re sult Performing Organization Address City/[facility]/ZIP Co de Phone Number [facility] [address] [place] [phone] * TSH W/Reflex to FT4 (05/06/2025 11:30 AM EDT) TSH reflex Free T4 1.58 0.32 - 4.0 uIU/mL [facility] Blood Venous blood specimen / Unknown 05/06/2025 11:30 AM EDT 05/06/2025 3:56 PM EDT us Kathrine Carrillo MD LAB BLOOD ORDERABLES Final Re sult [facility] [address] [place] [address] [phone] * (ABNORMAL) CBC auto differential (05/06/2025 11:30 AM EDT) White Blood Count 4.9 4.8 - 10.8 X10*3/uL [facility] Red Blood Count 4.41 4.20 - 5.50 X10*6/uL [facility] Hemoglobin 13.1 12.0 - 16.0 g/dl [facility] Hematocrit 40.1 37.0 - 47.0 % [facility] Mean Corpuscular Volume 90.9 80.0 - 98.0 fL [facility] Mean Corpuscular Hemoglobin 29.7 27.0 - 33.0 pg [facility] Mean Corpuscular HGB Conc 32.7 31.0 - 35.0 g/dl [facility] Red Cell Distribution Width 12.9 11.0 - 16.0 % [facility] Platelet Count 398 160 - 400 X10*3/uL [facility] Mean Platelet Volume 10.7 9.4 - 12.3 fL [facility] Neutrophils Percent Auto 56.1 45 - 73 % [facility] Imm Gran Pct Auto 0.4 0.0 - 0.4 % [facility] Lymphocytes Percent Auto 30.4 20 - 40 % [facility] Monocytes Percent Auto 11.1(H) 2 - 11 % [facility] Eosinophils Percent Auto 1.0 0 - 4 % [facility] Basophils Percent Auto 1.0 0 - 2 % [facility] NRBC Pct Auto 0.0 0.0 - 0.2 /100WBC [facility] Neutrophils Absolute Auto 2.8 2.0 - 8.3 x10*3/uL [facility] Imm Gran Abs Auto 0.02 0.00 - 0.03 X10*3/uL [facility] Lymphocytes Absolute Auto 1.5 1.2 - 4.9 X10*3/uL [facility] Monocytes Absolute Auto 0.6 0.1 - 1.2 X10*3/uL [facility] Eosinophils Absolute Auto 0.1 0.0 - 0.4 X10*3/uL [facility] Basophils Absolute Auto 0.1 0.0 - 0.2 X10*3/uL [facility] NRBC Abs Auto 0.000 0.0 - 0.012 X10*3/uL [facility] Blood Venous blood specimen / Unknown 05/06/2025 11:30 AM EDT 05/06/2025 3:42 PM EDT us Kathrine Carrillo MD LAB BLOOD ORDERABLES Final Re sult [facility] [address] [place] [phone] * (ABNORMAL) Hepatic Function Panel (05/06/2025 11:30 AM EDT) Bilirubin, Total 0.3 0.0 - 1.0 mg/dL [facility] Bilirubin, Direct 0.2 0.0 - 0.5 mg/dL [facility] Aspartate Amino Transferase 37(H) 5 - 31 U/L [facility] Comment:Slight Hemolysis.Int erpret result with caution. Alanine Aminotransferase 23 0 - 31 U/L [facility] Total Protein 7.7 6.5 - 8.0 g/dL [facility] Albumin Level 4.7 3.5 - 5.0 g/dL [facility] Alkaline Phosphatase 81 39 - 117 U/L [facility] Blood Venous blood specimen / Unknown 05/06/2025 11:30 AM EDT 05/06/2025 3:56 PM EDT us Kathrine Carrillo MD LAB BLOOD ORDERABLES Final Re sult Performing Organization Address [facility] Co de Phone Number [facility] [address] [place] [phone] * (ABNORMAL) Lipid Panel, Standard (05/06/2025 11:30 AM EDT) Triglycerides 186(H) <150 mg/dL [facility] Comment:Desirable Triglyceri de: less than 150 mg/dLBorderline High Triglyceride 150-199 mg/dLHigh Triglyceride: 200-499 mg/dLVery High Triglyceride: greater than or equal to 5OO mg/dL Cholesterol 197 <200 mg/dL [facility] Comment:Desirable Cholestero l: less than 200 mg/dLBorderline High Cholesterol: 200-239 mg/dLHigh Cholesterol: greater than 239 mg/dL LDL Cholesterol Calculated 119(H) <100 mg/dL [facility] Comment:Desirable LDL: less than 100 mg/dLNear Optimal/Above Optimal LDL: 110- 129 mg/dLBorderline High LDL: 130-159 mg/dLHigh LDL: 160-189 mg/dLVery High LDL: greater than or equal to 190 mg/dL HDL Cholesterol 41 >40 mg/dL [facility] Comment:Desirable HDL: great er than 40 mg/dL Note: This HDL assay may give artificially low results in patients with liver disease. Blood Venous blood specimen / Unknown 05/06/2025 11:30 AM EDT 05/06/2025 3:56 PM EDT us Kathrine Carrillo MD LAB BLOOD ORDERABLES Final Re sult Performing Organization Address [facility]/ZIP Co de Phone Number [facility] [address] [place] [address] [phone] from Last 3 Months Insurance MEDICARE [facility] STANDARD Care Teams Waste Machine Tender Relationship Specialty Start Date End Date Hoda Blevins CNP [address] [place] [address] PCP - General Family Medicine 07/14/25
--- OUTSIDE RECORDS SUMMARY | 2025-07-28 18:52 | XMS_ITS | Clinical Summary ---
Author Organization [facility] Address [address] [place] [phone] Phone Care Team Providers Care Radiation Monitor Name Role Phone Shawnee Haddad MD Primary Care Provider [phone] Allergies Active Allergy Reactions Criticality Noted Date [...] LEVEL 1940 DEPRESSION SCREENING 1952 OSTEOPOROSIS SCREENING INITIAL (ONE-TIME) 2005 RSV VACCINE (1 - 1-dose 75+ series) 2015 INFLUENZA VACCINE (#1) 2025 , 07/26/2019, 06/25/2018, Additional history exists COVID-19 VACCINE ( season) 2025 12/20/2020, 11/22/2020 Adult Td,Tdap Booster 06/25/2028 06/25/2018, 017 PNEUMOCOCCAL VACCINES (50+ years) Completed 06/25/2018, 07/30/2016 ZOSTER VACCINES Completed 01/30/2021, 11/17/2019 HEPATITIS A VACCINES Aged Out No long er eligible based on patient's age to complete this topic HIB VACCINES Aged Out No longer eligi ble based on patient's age to complete this topic IPV VACCINES Aged Out No longer eligi ble based on patient's age to complete this topic MENINGOCOCCAL VACCINES (ACWY) Aged Out No longer eligible based on patient's age to complete this topic MENINGOCOCCAL VACCINES (B) Aged Out N o longer eligible based on patient's age to complete this topic Medical Devices Not on file Insurance MEDICARE PART A & B Member Subscriber Plan / Payer (Ef fective 2005-Present) Name:Heriberto Mejia Member ID:[id number] Relation to Subscriber:Self Name:Heriberto Mejia Subscriber ID:[id number] Payer ID:[id number] Group ID:Not on file Type:Medicare Address: [employer] [address] (acquired by [employer] in 2014) MEDICARE PART A & B [employer] Care Teams Radiation Monitor Relationship Specialty Start Date End Date Shawnee Haddad MD [address] [place] [phone] PCP - General Family Medicine 02/08/21 Additional Source Comments The information contained in this document represents components of the legal health record. It is not the complete legal health record.[facility]
--- OUTSIDE RECORDS SUMMARY | 2025-07-28 18:52 | XMS_ITS | Clinical Summary ---
Author Organization [employer] [facility] ity Address [address] [place] [address] Care Team Providers Care Shredding Machine Knife Changer Name Role Phone Unavailable Primary Care Provider [...] nts (1 - 1-dose 75+ series) 2015 Depression Screening 09/15/2024 COVID-19 Vaccine (1 - 2024-2 6 season) 2025 Influenza Vaccine (#1) 2025 HIB Vaccines Aged [...]
--- OUTSIDE RECORDS SUMMARY | 2025-07-28 18:52 | XMS_ITS | Clinical Summary ---
Author Organization [facility] Address [address] [place] [address] Care Team Providers Care Manager Behavior Name Role Phone Shawnee Haddad Primary Care Provider [phone] Allergies Active Allergy Reactions Criticality Noted Date [...] patients) (1 - 1-dose 75+ series) 2015 Alcohol/Substance Use Screening 09/15/2024 Health Care Proxy Review 09/15/2024 COVID-19 Vaccine ( season) 2025 11/07/2021, 12/20/2020, 11/22/2020 Influenza Vaccine (#1) 2025 2, 07/16/2021, 06/07/2020, Additional history exists DTaP,Tdap,and Td Vaccines (2 - Td or Tdap) 06/25/2028 06/25/2018, 05/12/2017 Pneumococcal Vaccine: 50+ Years Completed 06/25/2018, 07/30/2016, 03/19/2015 Zoster Vaccines Completed 01/30/2021, 11/17/2019 Hepatitis B Vaccines Aged Out No long er eligible based on patient's age to complete this topic Insurance MEDICARE [facility] Care Teams Manager Behavior Relationship Specialty Start Date End Date Shawnee Haddad [address] [place] [id number] PCP - General Family Medicine 04/19/22
== END 2025-07-28 16:21 | disposition home or self-care (01) ==
LOC: HO.HHCLNP 16:20
PROVIDERS: Visit Provider Family Medicine
DX: R39.9 Unspecified symptoms and signs involving the genitourinary system (principal)
CPT/HCPCS: 87086; 87088; 87186

== ENCOUNTER 2025-09-13 09:16 | Outpatient (REF) | payer MEDICARE, MEDICAID, SELFPAY ==
--- OUTSIDE RECORDS SUMMARY | 2025-09-12 16:20 | XMS_ITS | Encounter Summary ---
Author Organization [employer] Address [address] [place] [address] Care Team Providers Care Nursing Technician Name Role Phone Hoda Blevins CNP Primary Care Provider [phone] Reason for Visit * Reason Comments Difficulty Urinating Encounter Details Date Type Department Care Team ([facility] Contact Info) Description 09/12/2025 4:20 PM EST Office Visit [facility] WALK-IN CENTER [address] [place], [place] [phone] Brandy Asher NP [address] [place] [address] Dysuria (Primary Dx); Elevated blood pressure reading in office with diagnosis of hypertension; Systolic murmur Social History Tobacco Use Types Packs/Day Years [...] Sign Reading Time Taken Comments Blood Pressure 146/82 09/12/2025 5:38 PM EST Pulse 90 09/12/2025 4:17 PM EST Temperature 36.2 C (97.2 F) 09/12/2025 4:17 PM EST Respiratory Rate 23 09/12/2025 4:17 PM EST Oxygen Saturation 95% 09/12/2025 4:17 PM EST Inhaled Oxygen Concentration - - Weight 62.2 kg (137 lb 3.2 oz) 09/12/2025 4:17 P M EST Height 147.3 cm (4' 10 ) 09/12/2025 4:17 PM EST Body Mass Index 28.67 09/12/2025 4:17 PM EST documented in this encounter Progress Notes * Brandy Asher NP - 09/12/2025 4:20 PM EST SUBJECTIVE Heriberto Terrazas is a 85 y.o. female who presents for Difficulty Urinating. Here with daughter Kenya who is providing Macedonian interpretation and speaking on behalf of the patient HPI Heriberto Terrazas, 85-year-old female - History of recurrent urinary tract infections, approximately 3 episodes in the past 9 months - Current symptoms similar to previsou - Symptoms include suprapubic pressure and burning at the end of urination; onset Wednesday, September 10, 2025 - Has some vaginal dryness, occasional chills - Denies fever, vaginal discharge or vaginal itching - Vision impairment, unable to assess urine color - No abnormal urine odor reported - Wipes from back to front after urination - Heart murmur noted on exam - Elevation in BP noted; takes blood pressure medication daily Review of Systems Constitutional: Negative. Negative for chills and fever. Respiratory: Negative for chest tightness and shortness of breath. Cardiovascular: Negative for chest pain. Gastrointestinal: Negative for abdominal pain, constipation, diarrhea and nausea. Genitourinary: Positive for dysuria. Negative for hematuria, pelvic pain, vaginal bleeding and vaginal discharge. Musculoskeletal: Negative for arthralgias, back pain, myalgias and neck pain. Skin: Negative. Negative for rash and wound. Neurological: Negative for weakness, light-headedness and headaches. Psychiatric/Behavioral: Negative for behavioral problems, confusion, decreased concentration and suicidal ideas. Allergies[1] OBJECTIVE Vitals: 09/12/25 1617 09/12/25 1738 BP: (!) 145/74 (!) 146/82 BP Location: Left arm Right arm Patient Position: Sitting Sitting BP Cuff Size: Adult Pulse: 90 Resp: 23 Temp: 97.2 ??F (36.2 ??C) TempSrc: Temporal SpO2: 95% Weight: 137 lb 3.2 oz (62.2 kg) Height: 4' 10 (1.473 m) Office Visit on 09/12/2025 Component Date Value Ref Range Status Color, UA 09/12/2025 Yellow Final Clarity, UA 09/12/2025 Clear Final Glucose, UA 09/12/2025 Negative Final Bilirubin, UA 09/12/2025 Negative Final Ketones, UA 09/12/2025 Negative Final Spec Grav, UA 09/12/2025 1.015 Final Blood, UA 09/12/2025 Positive (A) Negative, None Detected Final moderate pH, UA 09/12/2025 5.5 Final Protein, UA 09/12/2025 Trace Final Urobilinogen, UA 09/12/2025 0.2 Final Leukocytes, UA 09/12/2025 Final large Nitrite, UA 09/12/2025 Positive (A) Negative, None Detected Final Appearance, UA 09/12/2025 clear Final QC Media Lot # 09/12/2025 [id number] Final Lot# Expiration Date 09/12/2025 73,126 Final Physical Exam Vitals reviewed. Constitutional: General: She is not in acute distress. Appearance: Normal appearance. She is not ill-appearing. HENT: Head: Normocephalic and atraumatic. Right Ear: External ear normal. Left Ear: External ear normal. Nose: Nose normal. Eyes: General: No scleral icterus. Extraocular Movements: Extraocular movements intact. Cardiovascular: Rate and Rhythm: Normal rate and regular rhythm. Heart sounds: Murmur heard. Pulmonary: Effort: Pulmonary effort is normal. No respiratory distress. Breath sounds: Normal breath sounds. Abdominal: Tenderness: There is no right CVA tenderness or left CVA tenderness. Musculoskeletal: General: Normal range of motion. Cervical back: Normal range of motion. Skin: General: Skin is warm and dry. Neurological: General: No focal deficit present. Mental Status: She is alert and oriented to person, place, and time. Gait: Gait normal. Psychiatric: Mood and Affect: Mood normal. Behavior: Behavior normal. Assessment/Plan Recurrent urinary tract infection (UTI) symptoms: - Repeat urinary tract infection suspected due to pressure and burning after urination, with similar symptoms occurring three times in the last nine months. - Postive nitrites and large leukocytes on POCT UA. Insufficient urine sample provided for culture;ordered to be completed out patient - rx'd 3 day course of bactrim to be started after urine culture - Recommended increased fluid intake and drink pure cranberry juice (not from concentrate or cocktail). - Educated on proper perineal hygiene, specifically wiping from front to back to reduce risk of infection. Heart murmur: - Heart murmur auscultated, currently asymptomatic. New finding per patient and daughter. No cardiology follow-up in place. - Documented murmur for ongoing monitoring. - Advised to follow up with primary care provider at next scheduled appointment. Instructed to seekmedical attention sooner if symptoms such as dizziness, dyspnea, or chest pain develop. Assessment & Plan Dysuria Orders: sulfamethoxazole-trimethoprim (Bactrim DS) 800-160 MG tablet; Take 1 tablet by mouth 2 times daily for 3 days. Culture, Urine, Routine; Future POCT Urinalysis Elevated blood pressure reading in office with diagnosis of hypertension - Systolic BP mildly elevated with repeat comparable to initial reading - Med compliance reinforced along - Encouraged low salt diet Systolic murmur This note was drafted using Ambient (AI) technology. The patient/patient's guardian has been informed and has consented to the use of this technology: Yes Future Appointments Date Time Provider Department Center 09/28/2025 9:45 AM Hoda Blevins CNP [facility] [1] Allergies Allergen Reactions Aspirin Hives and Rash Other Reaction(s): rash Brimonidine Rash and Other documented in this encounter Plan of Treatment Upcoming Encounters Date Type Department Care Team ([facility] st Contact Info) Description 09/28/2025 9:45 AM EST Office Visit [facility] MED & PEDS [address] [place] [address] Hoda Blevins CNP [address] [place] [address] Scheduled Orders Name Type Priority Associated Diagnoses Orde r Schedule Culture, Urine, Routine Microbiology Routine Dysuria Expected: 09/12/2025 (Approximate), Expires: 09/12/2026 documented as of this encounter Procedures Procedure Name Priority Date/Time Associated Diagnosis Comments POCT URINALYSIS DIPSTICK Routine 09/12/2025 5:46 PM EST Dysuria documented in this encounter Results * (ABNORMAL) POCT Urinalysis (09/12/2025 5:46 PM EST) Color, UA Yellow Clarity, UA Clear Glucose, UA Negative Bilirubin, UA Negative Ketones, UA Negative Spec Grav, UA 1.015 Blood, UA Positive(A) Negative, None Detected Comment:moderate pH, UA 5.5 Protein, UA Trace Urobilinogen, UA 0.2 Leukocytes, UA Comment:large Nitrite, UA Positive(A) Negative, None Detected Appearance, UA clear QC Media Lot # [id number] Lot# Expiration Date 73,126 Urine (Urine, Random) 09/12/2025 5:46 PM EST Brandy Asher NP POINT OF CARE TEST ENTER/EDIT O RDERABLES Final Result documented in this encounter Visit Diagnoses Diagnosis Dysuria- Primary Elevated blood pressure reading in office with diagnosis of hypertension Systolic murmur Undiagnosed cardiac murmurs documented in this encounter Additional Health Concerns Assessment Noted Time PHQ-9 Depression Total Score: 0 03/30/20 2:40 PM EDT documented as of this encounter Care Teams Nursing Technician Relationship Specialty Start Date End Date Hoda Blevins CNP [address] [place] [address] PCP - General Family Medicine 07/14/25 documented as of this encounter
--- OUTSIDE RECORDS SUMMARY | 2025-09-13 11:48 | XMS_ITS | Encounter Summary ---
Author Organization [employer] Address [address] [place] [address] Care Team Providers Care Corporate Sales Representative Name Role Phone Shawnee Haddad MD Primary Care Provider [phone] Hoda Blevins CNP Primary Care Provider [phone] Reason for Visit * Reason Comments Med Refill Encounter Details Date Type Department Care Team ([facility] st Contact Info) Description 05/11/2025 Refill [facility] WALK[facility]IN C[facility] [address] [place], [place] [phone] Jonny Trammell MD [address] [place] [address] Social History Tobacco Use Types Packs/Day Years [...] Care Team (Late st Contact Info) Description 09/28/2025 9:45 AM EST Office Visit [facility] MED & PEDS [address] [place] [address] Hoda Blevins CNP [address] [place] [address] documented as of this encounter Visit Diagnoses Not on filedocumented in this encounter Additional Health Concerns Assessment Noted Time PHQ-9 Depression Total Score: 0 03/30/20 2:40 PM EDT documented as of this encounter Care Teams Corporate Sales Representative Relationship Specialty Start Date End Date Shawnee Haddad MD [address] [place] [address] PCP - General Family Medicine 01/24/16 07/13/25 Hoda Blevins CNP [address] [place] [address] PCP - General Family Medicine 07/14/25 documented as of this encounter
--- OUTSIDE RECORDS SUMMARY | 2025-09-13 11:48 | XMS_ITS | Clinical Summary ---
Author Organization [facility] Address [address] [place] [address] Care Team Providers Care Medical Insurance Biller Name Role Phone Shawnee Haddad Primary Care Provider [phone] Allergies Active Allergy Reactions Criticality Noted Date [...] Refills, Maintenance, 04/17/21 11:56:00 EDT, [facility], Patient sensitive to inactive ingredients of manufacturers [...] 2025 2, 07/16/2021, 06/07/2020, Additional history exists COVID-19 Vaccine (2024- season) 2025 11/07/2021, 12/20/2020, 11/22/2020 DTaP,Tdap,and Td Vaccines (2 - Td or Tdap) 06/25/2028 06/25/2018, 05/12/2017 Pneumococcal Vaccine: 50+ Years Completed 06/25/2018, 07/30/2016, 03/19/2015 Zoster Vaccines Completed 01/30/2021, 11/17/2019 Hepatitis B Vaccines Aged Out No long er eligible based on patient's age to complete this topic Insurance MEDICARE [facility] Care Teams Medical Insurance Biller Relationship Specialty Start Date End Date Shawnee Haddad [address] [place] [phone] PCP - General Family Medicine 04/19/22
--- OUTSIDE RECORDS SUMMARY | 2025-09-13 11:48 | XMS_ITS | Clinical Summary ---
Author Organization [facility] Address [address] [facility] [address] [place] [address] Phone Care Team Providers Care Chemist Inorganic Name Role Phone Shawnee Haddad MD Primary Care Provider [phone] Allergies Active Allergy Reactions Criticality Noted Date [...] file Insurance MEDICARE PART A & B HEALTH MEDICARE PART A & B [place] Care Teams Chemist Inorganic Relationship Specialty Start Date End Date Shawnee Haddad MD [address] [place] [address] PCP - General Family Medicine 02/08/21 Additional Source Comments The information contained in this document represents components of the legal health record. It is not the complete legal health record.[facility]
--- OUTSIDE RECORDS SUMMARY | 2025-09-13 11:48 | XMS_ITS | Encounter Summary ---
Author Organization [employer] Address [address] 7t [place] [address] Care Team Providers Care Manager Store Name Role Phone Shawnee Haddad MD Primary Care Provider [phone] Hoda Blevins CNP Primary Care Provider [phone] Reason for Visit * Reason Onset Date Comments Appointment Request 02/17/2023 Encounter Details Date Type Department Care Team (Late st Contact Info) Description 02/17/[address] [facility] MEDICINE [address] [place] [address] Shawnee Haddad MD [address] [place] [address] Appointment Request Social History Tobacco Use Types [...] Description 09/28/2025 9:45 AM EST Office Visit [facility] MED & PEDS [address] [place] [address] Hoda Blevins CNP [address] [place] [address] documented as of this encounter Visit Diagnoses Not on filedocumented in this encounter Care Teams Manager Store Relationship Specialty Start Date End Date Shawnee Haddad MD [address] [place] [address] PCP - General Family Medicine 01/24/16 07/13/25 Hoda Blevins CNP [address] [place] [address] PCP - General Family Medicine 07/14/25 documented as of this encounter
--- OUTSIDE RECORDS SUMMARY | 2025-09-13 11:48 | XMS_ITS | Encounter Summary ---
Author Organization [employer] Address [address] [facility] 7t [place] [address] Care Team Providers Care Bending Roll Hand Name Role Phone Hoda Forrest CNP Primary Care Provider [phone] Reason for Visit * Reason Onset Date Comments Nurse Triage 09/12/2025 Encounter Details Date Type Department Care Team (Late st Contact Info) Description 09/12/2025 Telephone [facility] MEDICINE [address] [place] [address] Hoda Forrest CNP [address] [place], [place] [phone] Nurse Triage Social History Tobacco Use Types Packs/Day Years [...] encounter Miscellaneous Notes * Telephone Encounter - Margarita White RN - 09/12/2025 4:13 PM EST Patient currently at [facility] for evaluation of urination pain and UTI symptoms today 09/12/25 at 4:20 PM. Pt to follow up PRN. * Telephone Encounter - Jarred Mejia - 09/12/2025 3:31 PM EST Tc from son returning call regarding message prior. Daughter states they have not received a call today at all so son provided an alternative number. Please contact son at [phone]. * Telephone Encounter - Jory Jacob RN - 09/12/2025 12:05 PM EST Call returned to pt's daughter for triage. No answer, v/m left to return call to triage nurses. * Telephone Encounter - Jarred Mejia - 09/12/2025 11:45 AM EST Tc from daughter returning call regarding message prior. * Telephone Encounter - Alberta Hogue - 09/12/2025 8:16 AM EST Symptom: Urination Pain Outcome: Schedule an urgent appointment (within 1 hour) or talk to a nurse or provider soon Reason: Severe pain now The caller accepted this outcome. Daughter doesn't need oiler helper Pcp Noel forrest documented in this encounter Plan of Treatment Upcoming Encounters Date Type Department Care Team (Late st Contact Info) Description 09/28/2025 9:45 AM EST Office Visit [facility] MED & PEDS [address] [place] [address] Hoda Forrest CNP [address] [place] [address] documented as of this encounter Visit Diagnoses Not on filedocumented in this encounter Additional Health Concerns Assessment Noted Time PHQ-9 Depression Total Score: 0 03/30/20 25 2:40 PM EDT documented as of this encounter Care Teams Bending Roll Hand Relationship Specialty Start Date End Date Hoda Forrest CNP [address] [place] [address] PCP - General Family Medicine 07/14/25 documented as of this encounter
--- OUTSIDE RECORDS SUMMARY | 2025-09-13 11:48 | XMS_ITS | Encounter Summary ---
Author Organization [employer] Address [address] [place] [address] Care Team Providers Care Outdoor Adventure Leader Name Role Phone Hoda Blevins CNP Primary Care Provider [phone] Reason for Visit * Reason Comments Med Refill Encounter Details Date Type Department Care Team ([facility] st Contact Info) Description 08/01/2025 Refill [facility] WALK-IN CENTER [address] [place], [place] [phone] Ivan Galeana MD [address] [place] [address] Acute cystitis with hematuria Social History Tobacco [...] Upcoming Encounters Date Type Department Care Team ([facility] st Contact Info) Description 09/28/2025 9:45 AM EST Office Visit [facility] MED & PEDS [address] [place] [address] Hoda Blevins CNP [address] [place] [address] documented as of this encounter Visit Diagnoses Diagnosis Acute cystitis with hematuria documented in this encounter Additional Health Concerns Assessment Noted Time PHQ-9 Depression Total Score: 0 03/30/20 2:40 PM EDT documented as of this encounter Care Teams Outdoor Adventure Leader Relationship Specialty Start Date End Date Hoda Blevins CNP [address] [place] [address] PCP - General Family Medicine 07/14/25 documented as of this encounter
--- OUTSIDE RECORDS SUMMARY | 2025-09-13 11:48 | XMS_ITS | Clinical Summary ---
Author Organization [employer] [facility] Address [address] [place] [address] Care Team Providers Care Clam Dredger Name Role Phone Unavailable Primary Care Provider [...]
--- OUTSIDE RECORDS SUMMARY | 2025-09-13 11:48 | XMS_ITS | Encounter Summary ---
Author Organization [employer] Address [address] [place] [address] Care Team Providers Care Clinical Resource Director Name Role Phone Shawnee Haddad MD Primary Care Provider [phone] Hoda Blevins CNP Primary Care Provider [phone] Reason for Visit * Reason Onset Date Comments Pre-op Exam 11/30/2024 Encounter Details Date Type Department Care Team (Late st Contact Info) Description 11/30/2024 Telephone [facility] MEDICINE [address] [place] [address] Shawnee Haddad MD [address] [place], [place] [phone] Pre-op Exam Social History Tobacco Use Types [...] Yes Surgeon's name: Bhavna Aleman Facility name: [facility] Surgeon's office number: [phone] Ext [phone] Surgeon's office fax number: [phone] Contact name (person you spoke with): Lois Last office note from surgeon requested: Yes Send Message to yL Alcala and Jama Rush documented in this encounter Plan of Treatment Upcoming Encounters Date Type Department Care Team ([facility] st Contact Info) Description 09/28/2025 9:45 AM EST Office Visit [facility] CHC MED & PEDS [address] [place] [address] Hoda Blevins CNP [address] [place] [address] documented as of this encounter Visit Diagnoses Not on filedocumented in this encounter Care Teams Clinical Resource Director Relationship Specialty Start Date End Date Shawnee Haddad MD [address] [place] [address] PCP - General Family Medicine 01/24/16 07/13/25 Hoda Blevins CNP [address] [place] [address] PCP - General Family Medicine 07/14/25 documented as of this encounter
--- OUTSIDE RECORDS SUMMARY | 2025-09-13 11:48 | XMS_ITS | Encounter Summary ---
Author Organization [employer] Address [address] [place] [address] Care Team Providers Care Bobbin Drier Name Role Phone Hoda Blevins CNP Primary Care Provider [phone] Encounter Details Date Type Department Care Team (Latest Contact Info) Description 09/12/2025 Travel Social History Tobacco Use Types Packs/Day [...] Description 09/28/2025 9:45 AM EST Office Visit [facility] CHC MED & PEDS [address] [place] [address] Hoda Blevins CNP [address] [place] [address] documented as of this encounter Visit Diagnoses Not on filedocumented in this encounter Additional Health Concerns Assessment Noted Time PHQ-9 Depression Total Score: 0 03/30/20 25 2:40 PM EDT documented as of this encounter Care Teams Bobbin Drier Relationship Specialty Start Date End Date Hoda Blevins CNP [address] [place] [address] PCP - General Family Medicine 07/14/25 documented as of this encounter
--- OUTSIDE RECORDS SUMMARY | 2025-09-13 11:48 | XMS_ITS | Clinical Summary ---
Author Organization [employer] Address [address] [place] [address] 7[address] [place] [address] Care Team Providers Care Promotion Manager Name Role Phone Hoda Blevins CNP Primary Care Provider [phone] Allergies Active Allergy Reactions Criticality Noted Date Comments Aspirin Hives,Rash High 01/24/2016 Other Reaction(s): rash Brimonidine Rash,Other Low 02/07/2021 Medications timolol (Timoptic) 0.5 % [...] EYE(S) FOUR TIMES DAILY DIRECTED 023 Active dorzolamide-timol ol (Cosopt) 22.3-6.8 MG/ML ophthalmic solution PONGA DEAN GOTA EN LOS DOS OJOS DOS VECES AL D A 023 Active docusate sodium (Colace) 100 MG capsule TOME 1 CAPSULA POR VIA ORAL DOS VECES AL ROCK NEEDED FOR CONSTIPATION NOT COVERED 022 Active naproxen (Naprosyn) 500 MG tablet TOME DEAN TABLETA TODOS LOS D 023 Active Spacer/Aero-Holdi ng Chambers deviceIndications :Mild persistent asthma with (acute) exacerbation 1 each Every 4-6 hours as needed (SOB, wheezing). 1 each 1 023 Active Blood Pressure Monitor kitIndications:Pr imary hypertension 1 each 2 times daily. 1 kit 023 Active fluticasone (Flonase Allergy Relief) 50 MCG/ACT nasal spray Administer 1 spray into each nostril 2 times daily. Shake gently. Before first use, prime pump. After use, clean tip and replace cap. 16 g 12 024 Active clotrimazole (Lotrimin) 1 % external solutionIndicatio ns:Otomycosis Apply topically 2 times a day x 10 days. 10 mL 024 Active pravastatin (Pravachol) 40 MG tablet TAKE 1 TABLET BY MOUTH EVERY DAY 90 tablet 3 025 Active lisinopril 40 MG tabletIndications :Primary hypertension TAKE 1 TABLET BY MOUTH EVERY DAY 90 tablet 3 025 Active albuterol 108 (90 Base) MCG/ACT inhalerIndication s:Mild persistent asthma with (acute) exacerbation Inhale 2 puffs Every 4-6 hours as needed for wheezing or shortness of breath. 18 g 1 025 Active brimonidine (AlphaGAN) 0.2 % ophthalmic solution PONGA DEAN PALOMO EN THELMA FALK AL D A 025 Active acetaZOLAMIDE (Diamox) 250 MG tablet Take 500 mg by mouth 2 times daily. 021 Active clotrimazole-beta methasone (Lotrisone) cream See Instructions, JOSE C AL AREA AFECTADA TODOS [place], # 45 Gm, 1 Refills, [id number], 30, JOSE C AL AREA [place]ECT[place] TOD[place], 162.56, cm, 07/17/21 15:30:00 EDT, Height, 58.5, kg, 07/17/21 15:30:00 EDT, Dry Weight 022 Active dorzolamide (Trusopt) 2 % ophthalmic solution Administer 1 drop into affected eye(s). 015 Active gatifloxacin (Zymar) 0.5 % solution ophthalmic solution PLEASE SEE ATTACHED FOR DETAILED DIRECTIONS 025 Active Rocklatan 0.02-0.005 % solution PONGA DEAN GOTA EN LOS DOS OJOS TODOS LOS D POR LA NOCHE Active ofloxacin (Ocuflox) 0.3 % ophthalmic solution PONGA DEAN GOTA EN THELMA DERECHO CUATRO VECES AL D A Active albuterol (2.5 MG/3ML) 0.083% nebulizer solutionIndicatio ns:Mild persistent asthma without complication Take 3 mL (2.5 mg) by nebulization every 4 (four) hours if needed for wheezing or shortness of breath. 75 mL 3 Active acetaminophen (Tylenol) 325 MG tablet Take 650 mg by mouth every 6 (six) hours if needed. Active acetaminophen (Tylenol) 325 MG capsule Take 650 mg by mouth. Active atropine 1 % ophthalmic solution PONGA DEAN GOTA EN THELMA FRANCISCA DOS VECES AL D A Active estradiol (Estrace) 0.1 MG/GM vaginal cream See Instructions, 1 gram Vaginally at bedtime 2 times per week, # 42 Gm, 4 Refills, Maintenance, 04/17/21 11:56:00 AM EDT, [facility], Patient sensitive to inactive ingredients of manufacturers drugs - compound makes a significant difference for this patient, 149.7, cm, 04/17/21 11:00:00 EDT, Height, 60, kg, 04/17/21 11:00:00 EDT, Dry Weight Active hydrOXYzine HCl (Atarax) 10 MG tablet 1 tablet. Active ibuprofen 600 MG tablet Take 600 mg by mouth every 6 (six) hours if needed. Active oxyCODONE (Roxicodone) 5 MG immediate release tablet Take 5 mg by mouth. Active albuterol 108 (90 Base) MCG/ACT inhaler Inhale 2 puffs if needed in the morning, at noon, in the evening, and at bedtime. Active albuterol 108 (90 Base) MCG/ACT inhaler Inhale every 6 (six) hours. Active dorzolamide-timol ol (Cosopt) 2-0.5 % ophthalmic solution Administer 1 drop into affected eye(s) 2 times daily. 022 Active prednisoLONE acetate (Pred-Forte) 1 % ophthalmic suspension Administer 1 drop into affected eye(s) 4 times daily. 021 Active olopatadine (Patanol) 0.1 % ophthalmic solutionIndicatio ns:Allergic conjunctivitis of left eye Administer 1 drop into the left eye 2 times daily. 5 mL 025 2025 Active fluticasone furoate (Arnuity Ellipta) 200 MCG/ACT inhalerIndication s:Mild persistent asthma with (acute) exacerbation Inhale 1 puff Once per day. 1 each 025 2025 Active NIFEdipine XL (Procardia XL) 60 MG 24 hr tabletIndications :Primary hypertension TAKE 1 TABLET BY MOUTH EVERY DAY 90 tablet 3 Active sulfamethoxazole- trimethoprim (Bactrim DS) 800-160 MG tabletIndications :Dysuria Take 1 tablet by mouth 2 times daily for 3 days. 6 tablet 025 2025 Active NIFEdipine XL (Procardia XL) 60 MG 24 hr tabletIndications :Primary hypertension TAKE 1 TABLET BY MOUTH EVERY DAY 90 tablet 3 024 2024 Discontinued Active Problems Problem Noted Date Diagnosed Date Discharge of left ear present 08/02/2024 Mild persistent asthma without complication 10/16 Lipid disorder 10/30/2022 Primary open angle glaucoma of both eyes, severe stage 02/22/2021 Encounters Date Type Department Care Team Description 09/12/2025 4:20 PM EST Office Visit [facility] [address] [place] [phone] Brandy Asher NP Dysuria (Primary Dx); Elevated blood pressure reading in office with diagnosis of hypertension; Systolic murmur 09/12/2025 Travel 09/12/2025 Telephone [facility] [address] [place] [address] [phone] Hoda Blevins CNP Nurse Triage 09/09/2025 Refill [facility] [address] [place] [address] [phone] Gurdeep Bennett MD Primary hypertension 08/23/2025 2:45 PM EST Office Visit [facility] [address] [place] [address] Hoda Blevins CNP Pre-op evaluation (Primary Dx); Contusion of face, initial encounter 08/23/2025 Travel 08/22/2025 Telephone [facility] [address] [place] [address] Hoda Blevins CNP 08/02/2025 Refill [facility] [address] [place] [address] Hoda Blevins CNP Mild persistent asthma with (acute) exacerbation 08/01/2025 Refill [facility] [address] [place] [address] Shawnee Haddad MD Mild persistent asthma with (acute) exacerbation 08/01/2025 Telephone [facility] [address] [place] [address] Hoda Blevins CNP pre op 08/01/2025 Refill [facility] [address] [place] [phone] Ivan Galeana MD Acute cystitis with hematuria 07/28/2025 11:20 AM EST Office Visit [facility] [address] [place] [phone] Ivan Galeana MD Acute cystitis with hematuria 07/21/2025 Telephone [facility] [address] [place] [address] Hoda Blevins CNP Prior Authorization 06/20/2025 Telephone [facility] [address] [place] [phone] Shawnee Haddad MD from Last 3 Months Immunizations Immunization Administration [...] Mass Index 28.67 09/12/2025 4:17 PM EST Plan of Treatment Upcoming Encounters Date Type Department Care Team (Late st Contact Info) Description 09/28/2025 9:45 AM EST Office Visit [facility] [address] [place], [place] [phone] Hoda Blevins, CLINIC SUPERVISOR [address] [place], [place] [phone] Health Maintenance Due Date Last Done Comments COVID-19 Vaccine ( season) 2025 11/07/2021, 12/20/2020, 11/22/2020 Influenza Vaccine (#1) 2025 , 08/21/2023, 07/02/2022, Additional history exists Alcohol/Substance Use Screening 03/30/2026 03/30/2025 Depression Screening 03/30/2026 03/30/2025, 03/30/20 25 SDOH Screening 03/30/2026 03/30/2025 Tobacco Screening 09/12/2026 09/12/2025 DTaP/Tdap/Td Vaccines (2 - Td or Tdap) [...] DIPSTICK Routine 09/12/2025 5:46 PM EST Dysuria CULTURE, URINE, ROUTINE Routine 07/28/2025 11:08 AM EST Acute cystitis with hematuria POCT URINALYSIS DIPSTICK Routine 07/28/2025 11:06 AM EST Acute cystitis with hematuria ECG 12-LEAD Routine 06/21/2025 10:41 AM EDT Pre-op evaluation LIPID PANEL, STANDARD Routine 05/06/2025 11:30 AM EDT Primary open angle glaucoma of both eyes, severe stage Mild persistent asthma without complication Lipid disorder Trigger middle finger of right hand Primary hypertension from Last 3 Months or Most Recently Relevant to Health Maintenance Results * (ABNORMAL) POCT Urinalysis (09/12/2025 5:46 PM EST) Only the most recent of2 resultswithin [...] CARE TEST ENTER/EDIT O RDERABLES Final Result * Culture, Urine, Routine (07/28/2025 11:08 AM EST) Urine Urine specimen obtained by clean catch procedure / Unknown 07/28/2025 11:08 AM EST 07/28/2025 4:21 PM EST Comment:UACC Narrative [facility] - 07/30/2025 8:00 AM EST Escherichia coli Quant 10,000 to 50,000 cfu/mL Escherichia coli: Ampicillin >=32(R) Escherichia coli: Cefazolin (Urine) 2(S) Escherichia coli: Cefepime <=0.12(S) Escherichia coli: Ceftriaxone <=0.25(S) Escherichia coli: Ciprofloxacin <=0.06(S) Escherichia coli: Gentamicin <=1(S) Escherichia coli: Nitrofurantoin <=16(S) Escherichia coli: Trimethoprim/Sulfamethoxazole <=20(S) Specimen Source: Urine clean catch Ivan Galeana MD LAB MICROBIOLOGY - GENERAL ORDER SREEKANTH Final Result [facility] [address] [place] [phone] * ECG 12 lead (06/21/2025 10:41 AM EDT) Narrative Hoda Blevins CNP - 06/21/2025 10:41 AM EDT NSR, Rate 65bpm, no ST segmental changes, normal ECG. Hoda Blevins CNP ECG ORDERABLES Final Res ult * (ABNORMAL) Lipid Panel, Standard (05/06/2025 11:30 AM EDT) Triglycerides 186(H) <150 mg/dL [facility] Comment:Desirable Triglyceri de: less than 150 mg/dLBorderline High Triglyceride 150-199 mg/dLHigh Triglyceride: 200-499 mg/dLVery High Triglyceride: greater than or equal to 5OO mg/dL Cholesterol 197 <200 mg/dL [facility] Comment:Desirable Cholestero l: less than 200 mg/dLBorderline High Cholesterol: 200-239 mg/dLHigh Cholesterol: greater than 239 mg/dL LDL Cholesterol Calculated 119(H) <100 mg/dL [facility] Comment:Desirable LDL: less than 100 mg/dLNear Optimal/Above Optimal LDL: 110- 129 mg/dLBorderline High LDL: 130-159 mg/dLHigh LDL: 160-189 mg/dLVery High LDL: greater than or equal to 190 mg/dL HDL Cholesterol 41 >40 mg/dL [facility] Comment:Desirable HDL: great er than 40 mg/dL Note: This HDL assay may give artificially low results in patients with liver disease. Blood Venous blood specimen / Unknown 05/06/2025 11:30 AM EDT 05/06/2025 3:56 PM EDT us Kathrine Carrillo MD LAB BLOOD ORDERABLES Final Re sult [facility] [address] [place] [address] [phone] from Last 3 Months or Most Recently Relevant to Health Maintenance Insurance [place]IC[place] [address] [place] [id number] [facility] Care Teams Promotion Manager Relationship Specialty Start Date End Date Hoda Blevins CNP [address] [place] [address] PCP - General Family Medicine 07/14/25
--- OUTSIDE RECORDS SUMMARY | 2025-09-13 11:48 | XMS_ITS | Encounter Summary ---
Author Organization [employer] Address [address] [facility] [address] [place] [address] Care Team Providers Care Hospital Liaison Name Role Phone Hoda Blevins CNP Primary Care Provider [phone] Reason for Visit * Reason Comments Med Refill Encounter Details Date Type Department Care Team ([facility] Contact Info) Description 09/09/2025 Refill [facility] [address] [place] [address] Gurdeep Bennett MD [address] [place] [address] Primary hypertension Social History Tobacco Use Types Packs/Day Years [...] Office Visit [facility] [address] [place] [address] Hoda Blevins CNP [address] [place] [address] documented as of this encounter Visit Diagnoses Diagnosis Primary hypertension Unspecified essential hypertension documented in this encounter Additional Health Concerns Assessment Noted Time PHQ-9 Depression Total Score: 0 03/30/20 2:40 PM EDT documented as of this encounter Care Teams Hospital Liaison Relationship Specialty Start Date End Date Hoda Blevins CNP [address] [place] [address] PCP - General Family Medicine 07/14/25 documented as of this encounter
--- OUTSIDE RECORDS SUMMARY | 2025-09-13 11:48 | XMS_ITS | Encounter Summary ---
Author Organization [employer] Address [address] [facility] [address] [place] [address] Care Team Providers Care Gravel Wheeler Name Role Phone Shawnee Haddad MD Primary Care Provider [phone] Hoda Blevins CNP Primary Care Provider [phone] Encounter Details Date Type Department Care Team ([facility] st Contact Info) Description 08/04/2024 Orders Only [facility] [address] [place] [address] Gurdeep Bennett MD [address] [place] [address] Otomycosis (Primary Dx) Social History Tobacco Use [...] Description 09/28/2025 9:45 AM EST Office Visit [facility] [address] [place] [address] Hoda Blevins CNP [address] [place] [address] documented as of this encounter Visit Diagnoses Diagnosis Otomycosis- Primary Other specified dermatomycoses documented in this encounter Care Teams Gravel Wheeler Relationship Specialty Start Date End Date Shawnee Haddad MD [address] [place] [phone] PCP - General Family Medicine 01/24/16 07/13/25 Hoda Blevins CNP [address] [place] [address] PCP - General Family Medicine 07/14/25 documented as of this encounter
--- OUTSIDE RECORDS SUMMARY | 2025-09-13 11:48 | XMS_ITS | Encounter Summary ---
Author Organization [employer] Address [address] [place] [address] Care Team Providers Care Branch Service Specialist Name Role Phone Shawnee Haddad MD Primary Care Provider [phone] Hoda Blevins CNP Primary Care Provider [phone] Reason for Visit * Reason Comments Med Refill Encounter Details Date Type Department Care Team ([facility] st Contact Info) Description 05/11/2025 Refill [facility] [address] [place] [address] Zuly Cardenas MD [address] [place] [address] Social History Tobacco Use Types Packs/Day Years [...] Description 09/28/2025 9:45 AM EST Office Visit [facility] [address] [place] [address] Hoda Blevins CNP [address] [place] [address] documented as of this encounter Visit Diagnoses Not on filedocumented in this encounter Additional Health Concerns Assessment Noted Time PHQ-9 Depression Total Score: 0 03/30/20 2:40 PM EDT documented as of this encounter Care Teams Branch Service Specialist Relationship Specialty Start Date End Date Shawnee Haddad MD [address] [place] [phone] PCP - General Family Medicine 01/24/16 07/13/25 Hoda Blevins CNP [address] [place] [address] PCP - General Family Medicine 07/14/25 documented as of this encounter
== END 2025-09-13 09:17 ==
LOC: HO.CHCLDS 09:16
PROVIDERS: Visit Provider Nurse Practitioner
DX: R30.0 Dysuria (principal)
CPT/HCPCS: 87086; 87088; 87186